=== PATIENT | male | born 1990 ===

== ENCOUNTER 2020-06-25 13:02 | Outpatient (REF) | payer BC, SELFPAY | END 2020-06-25 13:03 | disposition home or self-care (01) | LOC: HO.LAB 13:02 | PROVIDERS: Visit Provider Internal Medicine | DX: Z20.828 Contact with and (suspected) exposure to other viral communicable diseases (principal) | CPT/HCPCS: C9803; U0003 ==

== ENCOUNTER 2020-07-05 15:08 | Outpatient (REF) | payer BC, SELFPAY | END 2020-07-05 15:09 | disposition home or self-care (01) | LOC: HO.LAB 15:08 | PROVIDERS: Visit Provider Internal Medicine | DX: Z20.828 Contact with and (suspected) exposure to other viral communicable diseases (principal) | CPT/HCPCS: C9803; U0003 ==

== ENCOUNTER 2021-01-18 20:33 | Emergency (ER) | payer BC, SELFPAY ==
[2021-01-18 20:41] VITALS: BP 159/99; PULSE 99; RESP 18; TEMP 37.4; O2SAT 95; BMI 27.3
--- NOTE | 2021-01-18 21:00 | ED_ITS ---
HPI - Skin/Abscess/Foreign Bdy General Chief complaint: Skin/Abscess/Foreign Body Stated complaint: Cyst Source: patient Mode of arrival: ambulatory Limitations: no limitations History of Present Illness HPI narrative: 30-year-old male presents with swollen area to the lateral aspect of the right thigh. 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 States this area is quite painful and warm to touch and has had it for the past few days. He did notice some drainage coming from the site. He denies fevers, chills, chest pain pressure, palpitations, shortness of breath, abdominal pain, abdominal distention, dysuria, hematuria, nausea, vomiting, diarrhea, constipation, and edema. MD complaint: abscess/boil Onset (ago): day(s) Tetanus up to date: no Location: RLE Severity: moderate Severity scale (1-10): 6 Quality: burning and aching Pain Consistency: constant Relieving factors: none Exacerbating factors: palpation and movement Context: none Associated symptoms: denies other symptoms Treatments prior to arrival: attempted to drain pus at home Related Data Previous Rx's Medication Instructions Recorded ibuprofen 600 mg PO Q6H PRN #30 tab 01/18/21 sulfamethoxazole-trimethoprim 1 tab PO Q12H 7 Days #14 tab 01/18/21 [Bactrim DS] Allergies Allergy/AdvReac Type Severity Reaction Status Date / Time Penicillins Allergy Swelling Verified 01/18/21 20:40 Review of Systems Review of Systems: Constitutional: No Fever, No Chills ENT/Mouth: No Ear Pain, No Hoarseness, No sore throat Eyes: No Eye Pain, No Swelling, No Redness, No Foreign Body Cardiovascular: No Chest Pain, No SOB Respiratory: No Cough, No Dyspnea Gastrointestinal: No Nausea, No Vomiting, No Diarrhea, No abdominal Pain Genitourinary: No Dysuria, No Hematuria Musculoskeletal: positive Right thigh pain, No Myalgias, No Joint Swelling Skin: positive right thigh erythema, No Skin lacerations, No rash Neuro: No Weakness, No Numbness, No Paresthesias, No Loss of Consciousness, No Dizziness, No Headache Psych: No Anxiety/Panic, No Depression Heme/Lymph: no easy bruising, no Lymphadenopathy Endocrine: No Polyuria, No Polydipsia Yes all other systems are reviewed and are negative PMFSH Past Medical History Attestation statement: The following information was validated with the patient. Source: old records reviewed Medical History Asthma Social History Social History Advance Directives: No Advance Directives Information Provided: Yes Physical Exam Vital Signs: Vital Signs: Last Vital Signs Temp 99.3 F 01/18/21 20:41 Pulse 99 01/18/21 20:41 Resp 18 01/18/21 20:41 BP 159/99 H 01/18/21 20:41 Pulse Ox 95 01/18/21 20:41 Body Mass Index 27.3 Appearance: Alert. Oriented X3. No acute distress. Eyes: Pupils equal, round and reactive to light. ENT: Pharynx normal. Neck: Normal inspection. Neck supple. CVS: Normal heart rate and rhythm. Pulses normal. Respiratory: No respiratory distress. Breath sounds normal. Abdomen: Soft and nontender. Skin: 5 cm in diameter area of cellulitis to the mid lateral thigh, no area of fluctuance there is a pinpoint Pustule in the center of the cellulitis. otherwise all other skin warm and dry. Normal skin color. Normal skin turgor. Extremities: No lower extremity edema. Neuro: No motor deficit. No sensory deficit. Course Course Course Narrative: 30-year-old male presents with cellulitis to the right thigh, no area of fluctuance, patient does not report tick bite, does not have any prior history of hidradenitis suppurative of or any other skin conditions. 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 Will give prescription for Bactrim DS as the patient is a naphylactic to penicillin and respectfully declines doxycycline as he does work out in the sun for prolonged periods of time. Patient verbalized understanding of and agrees to plan of care discharge home. MDM - Skin/Abscess/Foreign Bdy Differential Diagnosis Differential diagnosis: Likely abscess of skin or subcutaneous tissue and cellulitis Medical Records Attestation: I reviewed the patient's medical records. Discharge Plan Discharge Clinical Impression: Cellulitis Qualifiers: Site of cellulitis: extremity Site of cellulitis of extremity: lower extremity Laterality: right Qualified Code(s): L03.115 - Cellulitis of right lower limb Patient Disposition: Home, Self-Care Instructions: Cellulitis (ED) Additional Instructions: you were evaluated for swelling to the right thigh. You do have cellulitis that we are treating with Bactrim DS. This medication is an antibiotic. Please complete the entire course of this medication. You will take this medication twice a day for the next 7 days. Please alternate Tylenol and Motrin. Please write down what time you take Tylenol so you do not accidentally overdose on this medication. we updated your Tdap vaccine today. Thank you for choosing this emergency department for evaluation. Please follow-up with primary care physician as needed. Return to the emergency department for any new, concerning, or worsening symptoms. Prescriptions: New sulfamethoxazole-trimethoprim [Bactrim DS] 800-160 mg tablet 1 tab PO Q12H 7 Days Qty: 14 RF: 0 ibuprofen 600 mg tablet 600 mg PO Q6H PRN (Reason: pain) Qty: 30 RF: 0 Interventions: ED Discharge Assessment Last Done: 01/18/21 21:43 Discharge Date/Time: 01/18/21 21:42
[2021-01-18] MEDS: Diphth,Pertus(ACell),Tet Adult 0.5 ML SYRINGE IM (21:35)
[2021-01-18] MEDS: Acetaminophen 325 MG TABLET 650 MG PO (21:36)
== END 2021-01-18 21:42 | disposition home or self-care (01) ==
PROVIDERS: Emergency Provider Student in an Organized Health Care Education/Training Program
DX: L03.115 Cellulitis of right lower limb (principal)
CPT/HCPCS: 90471; 90715; 99284

== ENCOUNTER 2021-01-20 21:12 | Inpatient (IN) | payer BC, SELFPAY ==
--- NOTE | ~2021-01-20 | US_ITS ---
EXAMINATION: US EXTREMITY, NON-VASCULAR, RIGHT CLINICAL INFORMATION: just prior to ultrasound. COMPARISON: None. TECHNIQUE: Targeted ultrasound of the right thigh in the area of concern. FINDINGS: There is a small slightly complex irregularly-shaped fluid collection in the superficial subcutaneous soft tissues. This measures 1.5 cm transverse 0.8 cm AP and 1.6 cm craniocaudal. I cannot determine whether not the fluid communicates with the superficial skin defect. US/US extremity nonvascular IMPRESSION: Small slightly complex fluid collection in the right thigh in the area of concern. This is nonspecific but could reflect an abscess or hematoma. I am not certain whether not it communicates with the skin. This aspect is likely clinically evident.
[2021-01-20 21:19] VITALS: BP 131/81; PULSE 98; RESP 18; TEMP 37.3; O2SAT 97; BMI 27.1
--- NOTE | 2021-01-20 21:27 | ED_ITS ---
HPI - General Adult General Chief complaint: General Medical Stated complaint: Cyst Time Seen by Provider: 01/20/21 22:55 Source: patient Mode of arrival: ambulatory Limitations: no limitations History of Present Illness HPI narrative: 30-year-old male presents with worsening cellulitis and abscess to the right thigh. He was seen on 01/18/2021 and given Bactrim. He has been taking this medication as directed. The swelling and pain has increased, and he experience night sweats and subjective fevers last night. Does not report any loss of sensation, chest pain or pressure, palpitations, shortness of breath, abdominal pain, abdominal distention, dysuria, hematuria, nausea, vomiting, diarrhea, or weakness. Onset (ago): day(s) ( Five) Location: right and lower extremity Severity: moderate Severity scale (1-10): 6 Quality: burning and aching Pain Consistency: constant Relieving factors: none Exacerbating factors: movement Associated symptoms: fever/chills Treatments prior to arrival: NSAID and other ( antibiotics) Related Data Previous Rx's Medication Instructions Recorded ibuprofen 600 mg PO Q6H PRN #30 tab 01/18/21 sulfamethoxazole-trimethoprim 1 tab PO Q12H 7 Days #14 tab 01/18/21 [Bactrim DS] Allergies Allergy/AdvReac Type Severity Reaction Status Date / Time Penicillins Allergy Swelling Verified 01/18/21 20:40 Review of Systems Review of Systems: Constitutional: No Fever, No Chills ENT/Mouth: No Ear Pain, No Hoarseness, No sore throat Eyes: No Eye Pain, No Swelling, No Redness, No Foreign Body Cardiovascular: No Chest Pain, No SOB Respiratory: No Cough, No Dyspnea Gastrointestinal: No Nausea, No Vomiting, No Diarrhea, No abdominal Pain Genitourinary: No Dysuria, No Hematuria Musculoskeletal: positive right thigh pain, No Myalgias, No Joint Swelling Skin: positive abscess to right thigh, No Skin lacerations, No rash Neuro: No Weakness, No Numbness, No Paresthesias, No Loss of Consciousness, No Dizziness, No Headache Psych: No Anxiety/Panic, No Depression Heme/Lymph: no easy bruising, no Lymphadenopathy Endocrine: No Polyuria, No Polydipsia Yes all other systems are reviewed and are negative PMFSH Past Medical History Attestation statement: The following information was validated with the patient. Source: old records reviewed Medical History Asthma Social History Social History Advance Directives: No Advance Directives Information Provided: Yes Physical Exam Vital Signs: Vital Signs: Last Vital Signs Temp 99.1 F 01/20/21 21:19 Pulse 94 01/20/21 23:38 Resp 17 01/20/21 23:38 BP 142/93 H 01/20/21 23:38 Pulse Ox 96 01/20/21 23:38 Body Mass Index 27.1 Appearance: Alert. Oriented X3. moderate distress. Eyes: Pupils equal, round and reactive to light. ENT: Pharynx normal. Neck: Normal inspection. Neck supple. CVS: Normal heart rate and rhythm. Pulses normal. Respiratory: No respiratory distress. Breath sounds normal. Abdomen: Soft and nontender. Skin: please refer to picture of right thigh . Otherwise Skin warm and dry. Normal skin color. Normal skin turgor. Extremities: No lower extremity edema. Neuro: No motor deficit. No sensory deficit. Course Course Course Narrative: 30-year-old male presents with worsening cellulitis to the right thigh. p.o. antibiotics ineffective, will order labs per sepsis pr otocol. Will resuscitate with 2 L of fluid per ideal body weight, I will start clindamycin and vancomycin as patient is anaphylactic allergic to penicillins. Bedside ultrasound completed, area of abscess noted, I&D indicated. Prepped and draped in sterile fashion, Betadine cleanse, 0.5 cm incision made with 11 blade, approximately 30 mL of fluid expressed from the site, packed with iodoform dressing, covered with sterile dressing. Patient tolerated procedure well. Approximately 4 mL of lidocaine used for anesthetic. culture sent. 9:37 p.m. I did discuss this case with Dr. Ayers, patient will be admitted for cellulitis. 10:52 p.m. lactic acid 1.3, patient's white count is 19.7, chemistries are still pending. Procedures Abscess I/D Site: lower extremity Side (if applicable): right Local Anesthetic: lidocaine 2% Amount of anesthesia used (mL): 4 Technique: incised with blade Amount of fluid expressed (mL): 30 Sent for culture/gram staining?: Yes Packing used?: iodoform Medical Decision Making Differential Diagnosis Differential Diagnosis: Cellulitis, abscess, sepsis Medical Records Medical records reviewed: Yes I reviewed the patient's medical records. Lab Data Lab results reviewed: Yes I reviewed the patient's lab results. Result diagrams: 01/20/21 22:09 01/20/21 22:44 Labs: Lab Results 01/20/21 01/20/21 01/20/21 Range/Units 22:09 22:09 22:09 WBC 19.7 H (4.8-10.8) X10*3/uL RBC 5.00 (4.60-5.80) X10*6/uL Hgb 14.7 (14.0-18.0) g/dl Hct 41.9 L (42-52) % MCV 83.8 (80-98) fL MCH 29.4 (27.0-33.0) pg MCHC 35.1 (31.0-36.0) g/dl RDW 13.2 (11.0-16.0) % Plt Count 243 (160-400) X10*3/uL MPV 10.2 (9.4-12.4) fL Immature Gran % (Auto) 0.5 H (0.0-0.4) % Neut % (Auto) 79.3 H (45-73) % Lymph % (Auto) 9.1 L (20-40) % [place] % (Auto) 10.5 (2-11) % Eos % (Auto) 0.4 (0-4) % Baso % (Auto) 0.2 (0-2) % Lymph # (Auto) 1.8 (1.2-4.9) X10*3/uL [place] # (Auto) 2.1 H (0.1-1.2) X10*3/uL Eos # (Auto) 0.1 (0.0-0.4) X10*3/uL Baso # (Auto) 0.0 (0.0-0.2) X10*3/uL Abs Immat Gran (auto) 0.09 H (0.00-0.03) X10*3/uL Absolute Neuts (auto) 15.6 H (2.0-8.3) X10*3/uL Absolute Nucleated RBC 0.000 (0.0-0.012) X10*3/uL Nucleated RBC % (auto) 0.0 (0.0-0.2) /100WBC Smear Tech's Comments VERIFIED PT 15.0 H (9.9-13.0) SEC INR 1.3 H (0.9-1.1) APTT 28.9 (24.1-38.0) SEC Lactic Acid 1.3 (0.5-2.0) mmol/L COVID-19 ([facility]) (Negative) COVID-19 Clin Com 01/20/21 Range/Units 22:28 WBC (4.8-10.8) X10*3/uL RBC (4.60-5.80) X10*6/uL Hgb (14.0-18.0) g/dl Hct (42-52) % MCV (80-98) fL MCH (27.0-33.0) pg MCHC (31.0-36.0) g/dl RDW (11.0-16.0) % Plt Count (160-400) X10*3/uL MPV (9.4-12.4) fL Immature Gran % (Auto) (0.0-0.4) % Neut % (Auto) (45-73) % Lymph % (Auto) (20-40) % [place] % (Auto) (2-11) % Eos % (Auto) (0-4) % Baso % (Auto) (0-2) % Lymph # (Auto) (1.2-4.9) X10*3/uL [place] # (Auto) (0.1-1.2) X10*3/uL Eos # (Auto) (0.0-0.4) X10*3/uL Baso # (Auto) (0.0-0.2) X10*3/uL Abs Immat Gran (auto) (0.00-0.03) X10*3/uL Absolute Neuts (auto) (2.0-8.3) X10*3/uL Absolute Nucleated RBC (0.0-0.012) X10*3/uL Nucleated RBC % (auto) (0.0-0.2) /100WBC Smear Tech's Comments PT (9.9-13.0) SEC INR (0.9-1.1) APTT (24.1-38.0) SEC Lactic Acid (0.5-2.0) mmol/L COVID-19 ([facility]) Negative (Negative) COVID-19 Clin Com See Note Critical Care Time Critical Care Time Critical Care Time: Yes Total Critical Care Time: 45 Attestation: I have personally provided critical care time exclusive of time spent on separately billable procedures. Time includes review of laboratory data, radiology results, discussion with consultants, and monitoring for potential decompensation. Interventions were performed as documented. Discharge Plan Discharge Clinical Impression: Cellulitis Qualifiers: Site of cellulitis: extremity Site of cellulitis of extremity: lower extremity Laterality: right Qualified Code(s): L03.115 - Cellulitis of right lower limb Patient Disposition: Admitted As Inpatient
--- NOTE | 2021-01-20 22:10 | PM.IMHP ---
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 presented to the ER on 01/18/2021-noted to have thigh cellulitis given doxycycline and discharged home; patient reported that since he went home, he continued to have pain redness and swelling and later noted to have serosanguineous discharge. Denies any numbness tingling on the lower extremities; denies any fever chills cough. Denies any GI or symptoms. Review of all other systems is negative except mentioned above ER course: Per ER team patient noted to have mild open area with serosanguineous chest; status post I&D in the ER; noted right high warm tenderness and hyperemia consistent with cellulitis; given IV clindamycin and IV vancomycin. Admitted for further management. [facility] Medical History Asthma Social History Household Members: Family Housing: House Do you presently have visiting nurse or other home services: No Patient Tobacco Use Status: Never used Tobacco service: No Current occupational status: employed Meds Allergies Allergy/AdvReac Type Severity Reaction Status Date / Time Penicillins Allergy Swelling Verified 01/18/21 20:40 Active Medications: Current Medications Generic Name Dose Route Start Last Admin Trade Name Freq PRN Reason Stop Dose Admin Acetaminophen 650 mg 01/20/21 21:59 Acetaminophen 325 Mg Tablet PO Q6H PRN Pain, Mild (Pain Scale 1-3) Heparin Sodium (Porcine) 5,000 unit 01/20/21 22:00 Heparin Sodium,Porcine 5,000 Unit/Ml Vial SUBCUT Q8H JEISON Sodium Chloride 1,000 mls @ 999 mls/hr 01/20/21 21:30 Ns IVCONT 01/20/21 22:30 .Q1H1M JEISON Vancomycin HCl 1,000 mg/ 270 mls @ 270 mls/hr 01/20/21 21:28 Sodium Chloride IV 01/20/21 22:27 ONCE ONE Vancomycin HCl 1,000 mg/ 270 mls @ 270 mls/hr 01/20/21 22:00 Sodium Chloride IV Q12H JEISON Ketorolac Tromethamine 15 mg 01/20/21 22:02 Ketorolac Tromethamine 30 Mg/Ml Vial IVPUSH 01/25/21 22:01 Q6H PRN Pain, Severe (Pain Scale 7-10) Melatonin 6 mg 01/20/21 21:59 Melatonin 3 Mg Tablet PO BEDTIME PRN Insomnia Pharmacy Consult 1 each 01/20/21 21:59 Consult Rx Vancomycin Dosing MISCELLANE DAILY PRN Consult order Senna 17.2 mg 01/20/21 21:59 Sennosides 8.6 Mg Tablet PO BEDTIME PRN Constipation Sodium Chloride 3 ml 01/21/21 00:00 0.9 % Sodium Chloride Flush 3 Ml Syringe IVFLUSH QSHIFT [facility] Home Medications Medication Instructions Recorded Confirmed Last Taken Type ibuprofen 600 mg PO Q6H PRN 01/21/21 01/21/21 01/20/21 History Physical Exam Vital Signs and Narrative: Vital Signs: Last Vital Signs Temp 99.1 F 01/20/21 21:19 Pulse 98 01/20/21 21:19 Resp 18 01/20/21 21:19 BP 131/81 01/20/21 21:19 Pulse Ox 97 01/20/21 21:19 Body Mass Index 27.1 Gen: Appears be in no acute distress HEENT: NCAT, Moist mucosa. Pulmonary: Vesicular breath sounds, fair air entry CVS: Normal S1-S2 Abdomen: BS+, Soft, Nontender Extremities: Warm well perfused ; right thigh lateralmiddle 3rd noted to have warm, hyperemia, tenderness; Neuro: Alert and awake. Results Labs CBC and Chem 7: 01/22/21 08:53 01/22/21 08:53 Assessment and Plan (1) Cellulitis: Status: Acute 30-year-old male with no significant past medical history presented to the hospital with a chief complaint of right thigh pain redness and swelling - note of cellulitis/abscess; status post I&D in the ER. Admitted for further management. Right lateral thigh cellulitis /abscess: ?Bug bite Continue IV vancomycin. Follow up cultures. Id consult. nonvascular ultrasound to rule out any abscess pockets. Compartments are soft. pain control diet: Regular diet Code status: Full code Quality Stroke Does the patient have a stroke diagnosis?: No VTE Prior VTE?: No VTE Risk Level:: Medical - moderate - high VTE Device Contraindication: Treatment Not Indicated VTE Drug Contraindication: N/A - Med Ordered
[2021-01-20 22:22] LABS: INTERNATIONAL NORM RATIO 1.3 (0.9-1.1)
[2021-01-20 22:24] LABS: Partial Thromboplastin Time 28.9 SEC (24.1-38.0)
[2021-01-20 22:25] LABS: Basophils Percent Auto 0.2 % (0-2); Eosinophils Absolute Auto 0.1 X10*3/uL (0.0-0.4); Eosinophils Percent Auto 0.4 % (0-4); Hematocrit 41.9 % (42-52); Hemoglobin 14.7 g/dl (14.0-18.0); Imm Gran Abs Auto 0.09 X10*3/uL (0.00-0.03); Imm Gran Pct Auto 0.5 % (0.0-0.4); Lymphocytes Absolute Auto 1.8 X10*3/uL (1.2-4.9); Lymphocytes Percent Auto 9.1 % (20-40); MANUAL DIFF FLAG SCAN; Mean Corpuscular HGB Conc 35.1 g/dl (31.0-36.0); Mean Corpuscular Hemoglobin 29.4 pg (27.0-33.0); Mean Corpuscular Volume 83.8 fL (80-98); Mean Platelet Volume 10.2 fL (9.4-12.4); Monocytes Absolute Auto 2.1 X10*3/uL (0.1-1.2); Monocytes Percent Auto 10.5 % (2-11); Neutrophils Absolute Auto 15.6 X10*3/uL (2.0-8.3); Neutrophils Percent Auto 79.3 % (45-73); Platelet Count 243 X10*3/uL (160-400); Red Cell Distribution Width 13.2 % (11.0-16.0); SCAN SMEAR FLAG 1; White Blood Count 19.7 X10*3/uL (4.8-10.8)
[2021-01-20] MEDS: 0.9 % Sodium Chloride 1,000 ML 999 ML IVCONT ×2 (22:30→22:52)
[2021-01-20] MEDS: Clindamycin Phosphate/D5W 600 MG/50 ML PIGGYBACK 100 MG IV (22:32)
[2021-01-20] MEDS: Heparin Sodium,Porcine 5,000 UNIT/ML VIAL 5000 UNIT SUBCUT (22:33)
[2021-01-20] MEDS: Ketorolac Tromethamine 30 MG/ML VIAL IVPUSH (22:33)
[2021-01-20] MEDS: vancomycin HCL 1,000 MG in 0.9 % Sodium Chloride 250 ML 270 MG IV (22:34)
[2021-01-20 22:41] LABS: Lactic Acid 1.3 mmol/L (0.5-2.0)
--- NOTE | 2021-01-20 22:41 | PC.NURSE ---
first dose of vancomycin already given in the ed.
[2021-01-20 22:44] LABS: SLIDE REVIEW VERIFIED
[2021-01-20 22:51] LABS: COVID-19 Test Negative (Negative); IDNOW Serial# 9DD0AD1C
[2021-01-20] MEDS: Lidocaine HCl 2 % MPF 5 ML VIAL SUBCUT (22:54)
[2021-01-20 23:27] LABS: Anion Gap 16 (12-20); Blood Urea Nitrogen 13 mg/dL (9-16); Calcium 8.5 mg/dL (8.4-10.2); Carbon Dioxide 23 mmol/L (22-29); Chloride 103 mmol/L (96-108); Creatinine Clr Calc Pharmacy 79.8; Estimated Glomerular Filt Rate 58; Glucose Random 83 mg/dL (60-115); Potassium 3.8 mmol/L (3.3-5.1); Sodium 138 mmol/L (135-145)
[2021-01-20 23:38] VITALS: BP 142/93; PULSE 94; RESP 17; O2SAT 96
--- NOTE | 2021-01-20 23:54 | PC.NURSE ---
98.6 oral, hr 97 sat 99% room air, rr 16, 129/85
[2021-01-20 23:55] VITALS: BP 129/85; PULSE 97; RESP 16
[2021-01-21] VITALS (7 sets, daily range): BP systolic 129–141; BP diastolic 60–81; PULSE 74–99; RESP 17–20; TEMP 36.3–37.1; O2SAT 96–99
[2021-01-21] MEDS: Heparin Sodium,Porcine 5,000 UNIT/ML VIAL 5000 UNIT SUBCUT ×3 (06:07→23:05)
[2021-01-21 06:41] LABS: MANUAL DIFF FLAG NO
[2021-01-21 06:47] LABS: Basophils Percent Auto 0.1 % (0-2); Eosinophils Absolute Auto 0.1 X10*3/uL (0.0-0.4); Eosinophils Percent Auto 0.5 % (0-4); Hematocrit 41.5 % (42-52); Imm Gran Abs Auto 0.06 X10*3/uL (0.00-0.03); Imm Gran Pct Auto 0.4 % (0.0-0.4); Lymphocytes Percent Auto 13.5 % (20-40); Mean Corpuscular HGB Conc 33.7 g/dl (31.0-36.0); Mean Corpuscular Volume 86.1 fL (80-98); Mean Platelet Volume 10.7 fL (9.4-12.4); Monocytes Absolute Auto 1.4 X10*3/uL (0.1-1.2); Monocytes Percent Auto 9.8 % (2-11); Neutrophils Percent Auto 75.7 % (45-73); Platelet Count 230 X10*3/uL (160-400); Red Blood Count 4.82 X10*6/uL (4.60-5.80); Red Cell Distribution Width 13.3 % (11.0-16.0); White Blood Count 14.6 X10*3/uL (4.8-10.8)
[2021-01-21 07:08] LABS: Anion Gap 13 (12-20); Blood Urea Nitrogen 10 mg/dL (9-16); Calcium 8.3 mg/dL (8.4-10.2); Carbon Dioxide 22 mmol/L (22-29); Chloride 108 mmol/L (96-108); Creatinine Clr Calc Pharmacy 105.5; Estimated Glomerular Filt Rate > 60; Glucose Random 93 mg/dL (60-115); Potassium 4.2 mmol/L (3.3-5.1); Sodium 139 mmol/L (135-145)
[2021-01-21] MEDS: 0.9 % Sodium Chloride Flush 3 ML SYRINGE IVFLUSH ×2 (08:15→14:11)
--- NOTE | 2021-01-21 08:16 | PHA.MEDREC ---
TREVER ELLISON, pt not on any medications, was given ibiprofen and antibiotic upon ER visit few days ago.Pharmacy Consult ? Medication Reconciliation Pharmacy has completed the medication reconciliation.
--- NOTE | 2021-01-21 08:33 | MHC.CM.PN ---
pt lives in [facility] his mother. he reports that he is independent in his care. he drives a car and works a job. pt says that if he needs help then his mother could help him. he says his mother or a friend will transport him home at dc. pt denies the need for vna at dc. dc plan is home no svcs. cm to cont. to follow.
--- NOTE | 2021-01-21 09:47 | HO.PM.IMPN ---
Subjective Subjective Date of Service: 01/21/21 Interval History: Seen in f/u for cellulitis and abscess right the [facility] Review of Systems Gen: no fever Resp: no sob, no cough CV: no chest, no HOOKS, no leg edema GI: No n/v, no abd pain Neuro: No confusion pain in right the [facility] Physical Exam Vital Signs: Vital Signs: Last Vital Signs Temp 97.4 F 01/21/21 07:15 Pulse 74 01/21/21 07:15 Resp 18 01/21/21 07:15 BP 129/77 01/21/21 07:15 Pulse Ox 99 01/21/21 07:15 Body Mass Index 27.1 Const: Other: General: AO X 3, no acute distress Resp: CTA bilateral CVS: S1,S2,RRR GI: +BS, NT, no distention Skin: Neuro: motor grossly intact Psych: appropriate affect Objective Data Current Medications Generic Name Dose Route Start Last Admin Trade Name Freq PRN Reason Stop Dose Admin Acetaminophen 650 mg 01/20/21 21:59 Acetaminophen 325 Mg Tablet PO Q6H PRN Pain, Mild (Pain Scale 1-3) Heparin Sodium (Porcine) 5,000 unit 01/20/21 22:00 01/21/21 06:07 Heparin Sodium,Porcine 5,000 Unit/Ml Vial SUBCUT 5,000 unit Q8H [facility] Administration Vancomycin HCl 1,000 mg/ 270 mls @ 270 mls/hr 01/21/21 10:00 Sodium Chloride IV Q12H JEISON Ketorolac Tromethamine 15 mg 01/20/21 22:02 Ketorolac Tromethamine 30 Mg/Ml Vial IVPUSH 01/25/21 22:01 Q6H PRN Pain, Severe (Pain Scale 7-10) Melatonin 6 mg 01/20/21 21:59 Melatonin 3 Mg Tablet PO BEDTIME PRN Insomnia Pharmacy Consult 1 each 01/20/21 21:59 Consult Rx Vancomycin Dosing MISCELLANE DAILY PRN Consult order Senna 17.2 mg 01/20/21 21:59 Sennosides 8.6 Mg Tablet PO BEDTIME PRN Constipation Sodium Chloride 3 ml 01/21/21 00:00 01/21/21 08:15 0.9 % Sodium Chloride Flush 3 Ml Syringe IVFLUSH 3 ml QSHIFT [facility] Administration Labs CBC & Chem 7: 01/21/21 05:49 01/21/21 05:49 Labs: Laboratory Results - last 24 hr 01/20/21 01/20/21 01/20/21 22:09 22:09 22:09 WBC 19.7 H RBC 5.00 Hgb 14.7 Hct 41.9 L MCV 83.8 MCH 29.4 MCHC 35.1 RDW 13.2 Plt Count 243 MPV 10.2 Immature Gran % (Auto) 0.5 H Neut % (Auto) 79.3 H Lymph % (Auto) 9.1 L [place] % (Auto) 10.5 Eos % (Auto) 0.4 Baso % (Auto) 0.2 Lymph # (Auto) 1.8 [place] # (Auto) 2.1 H Eos # (Auto) 0.1 Baso # (Auto) 0.0 Abs Immat Gran (auto) 0.09 H Absolute Neuts (auto) 15.6 H Absolute Nucleated RBC 0.000 Nucleated RBC % (auto) 0.0 Smear Tech's Comments VERIFIED PT 15.0 H INR 1.3 H APTT 28.9 Sodium Potassium Chloride Carbon Dioxide Anion Gap BUN Creatinine Estim Creat Clear Calc Estimated GFR Random Glucose Lactic Acid 1.3 Calcium COVID-19 ([facility]ILETH) COVID-19 Clin Com 01/20/21 01/20/21 01/21/21 22:28 22:44 05:49 WBC 14.6 H RBC 4.82 Hgb 14.0 Hct 41.5 L MCV 86.1 MCH 29.0 MCHC 33.7 RDW 13.3 Plt Count 230 MPV 10.7 Immature Gran % (Auto) 0.4 Neut % (Auto) 75.7 H Lymph % (Auto) 13.5 L [place] % (Auto) 9.8 Eos % (Auto) 0.5 Baso % (Auto) 0.1 Lymph # (Auto) 2.0 [place] # (Auto) 1.4 H Eos # (Auto) 0.1 Baso # (Auto) 0.0 Abs Immat Gran (auto) 0.06 H Absolute Neuts (auto) 11.0 H Absolute Nucleated RBC 0.000 Nucleated RBC % (auto) 0.0 Smear Tech's Comments PT INR APTT Sodium 138 Potassium 3.8 Chloride 103 Carbon Dioxide 23 Anion Gap 16 BUN 13 Creatinine 1.44 H Estim Creat Clear Calc 79.8 Estimated GFR 58 Random Glucose 83 Lactic Acid Calcium 8.5 COVID-19 ([facility]ILETH) Negative COVID-19 Clin Com See Note 01/21/21 05:49 WBC RBC Hgb Hct MCV MCH MCHC RDW Plt Count MPV Immature Gran % (Auto) Neut % (Auto) Lymph % (Auto) [place] % (Auto) Eos % (Auto) Baso % (Auto) Lymph # (Auto) [place] # (Auto) Eos # (Auto) Baso # (Auto) Abs Immat Gran (auto) Absolute Neuts (auto) Absolute Nucleated RBC Nucleated RBC % (auto) Smear Tech's Comments PT INR APTT Sodium 139 Potassium 4.2 Chloride 108 Carbon Dioxide 22 Anion Gap 13 BUN 10 Creatinine 1.09 Estim Creat Clear Calc 105.5 Estimated GFR > 60 Random Glucose 93 Lactic Acid Calcium 8.3 L COVID-19 ([facility]ILETH) COVID-19 Clin Com Microbiology Microbiology Results: Microbiology 01/20/21 22:12 Routine Culture - Preliminary Thigh Right Culture in progress. Quality Stroke Does the patient have a stroke diagnosis?: No VTE Prior VTE?: No VTE Risk Level:: Medical - moderate - high VTE Device Contraindication: Treatment Not Indicated VTE Drug Contraindication: N/A - Med Ordered Assessment and Plan (1) Cellulitis: Status: Acute Assessment and Plan: 30-year-old male with no significant past medical history presented to the hospital with a chief complaint of right thigh pain redness and swelling - note of cellulitis/abscess; status post I&D in the ER. Admitted for further management. Right lateral thigh cellulitis /abscess: ?Bug bite Continue IV vancomycin. Follow up cultures, and gram stain. Id consult. nonvascular ultrasound to rule out any abscess pockets. Compartments are soft. pain control surgery consult to seee if he needs wider incision diet: Regular diet Code status: Full code
[2021-01-21] MEDS: Ketorolac Tromethamine 30 MG/ML VIAL 15 MG IVPUSH ×2 (10:09→20:23)
[2021-01-21] MEDS: vancomycin HCL 1,000 MG in 0.9 % Sodium Chloride 250 ML 270 MG IV ×2 (10:09→23:05)
--- NOTE | 2021-01-21 12:32 | PM.CNGS ---
History of Present Illness Consult details Consult date: 01/21/21 Requesting physician: Ricardo Lainez Narrative: 30-year-old male patient presenting with an abscess of the right thigh. 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 He was initially treated with oral antibiotics but when the redness and pain increased he subsequently returned to the emergency department. He was found to have an abscess in the right lateral thigh and subsequently underwent incision and drainage. A large abscess collection was drained and the wounds were packed. Surgical consultation was requested for possible extension of the incision and drainage. Of note the patient underwent an ultrasound of the site today which reveals no undrained abscess collection. Since the patient's admission he notes the redness have improved but he continues to have pain. Review of Systems Review of Systems: Yes all other systems are reviewed and are negative Constitutional: Constitutional: Reports body ache(s), Reports chills, Reports fatigue and Reports fever(s) Cardiovascular: Cardiovascular: Denies chest pain, Denies rapid heart rate, Reports leg edema and Denies palpitations Respiratory: Respiratory: Denies chest congestion, Denies cough and Denies excessive phlegm production Musculoskeletal: Musculoskeletal: Reports as per HPI Endocrine: Endocrine: Reports fatigue and Denies palpitations Hematologic/Lymphatic: Hematologic/Lymphatic: Denies lymphadenopathy [facility] Past Medical History Medical History Asthma Social History Social History Household Members: Family Housing: House Do you presently have visiting nurse or other home services: No Patient Tobacco Use Status: Never used Tobacco Use of substances other than those prescribed or required for medical reasons: No Currently Displaying Signs/Symptoms of Drug Intoxication Withdrawal: No Have you been hit, kicked, punched, or otherwise hurt by someone within the past year? If so, by whom?: No Do you feel safe in your current relationship?: Yes Is there a partner from a previous relationship who is making you feel unsafe now?: No Are you made to feel afraid or neglected: No Advance Directives: No Advance Directives Information Provided: Yes Do you have thoughts of harming others: None Do you have a plan to hurt others: No Plan Recently lost weight without trying: No Nutrition Risks: No Nutritional Risk Poor oral hygiene: No service: No Current occupational status: employed Meds Allergies Allergy/AdvReac Type Severity Reaction Status Date / Time Penicillins Allergy Swelling Verified 01/18/21 20:40 Active Medications: Current Medications Generic Name Dose Route Start Last Admin Trade Name Frelamin PRN Reason Stop Dose Admin Acetaminophen 650 mg 01/20/21 21:59 Acetaminophen 325 Mg Tablet PO Q6H PRN Pain, Mild (Pain Scale 1-3) Heparin Sodium (Porcine) 5,000 unit 01/20/21 22:00 01/21/21 06:07 Heparin Sodium,Porcine 5,000 Unit/Ml Vial SUBCUT 5,000 unit Q8H JEISON Administration Vancomycin HCl 1,000 mg/ 270 mls @ 270 mls/hr 01/21/21 10:00 01/21/21 11:11 Sodium Chloride IV Infused Q12H JEISON Infusion Ketorolac Tromethamine 15 mg 01/20/21 22:02 01/21/21 10:09 Ketorolac Tromethamine 30 Mg/Ml Vial IVPUSH 01/25/21 22:01 15 mg Q6H PRN Administration Pain, Severe (Pain Scale 7-10) Melatonin 6 mg 01/20/21 21:59 Melatonin 3 Mg Tablet PO BEDTIME PRN Insomnia Morphine Sulfate 2 mg 01/21/21 09:45 Morphine Sulfate 4 Mg/Ml Cartridge IVPUSH Q4H PRN Pain, Severe (Pain Scale 7-10) Pharmacy Consult 1 each 01/20/21 21:59 Consult Rx Vancomycin Dosing MISCELLANE DAILY PRN Consult order Senna 17.2 mg 01/20/21 21:59 Sennosides 8.6 Mg Tablet PO BEDTIME PRN Constipation Sodium Chloride 3 ml 01/21/21 00:00 01/21/21 08:15 0.9 % Sodium Chloride Flush 3 Ml Syringe IVFLUSH 3 ml QSHIFT JEISON Administration Home Medications Medication Instructions Recorded Confirmed Last Taken Type ibuprofen 600 mg PO Q6H PRN 01/21/21 01/21/21 01/20/21 History Physical Exam Vital Signs: Vital Signs: Last Vital Signs Temp 98.2 F 01/21/21 11:38 Pulse 83 01/21/21 11:38 Resp 17 01/21/21 11:38 BP 131/68 01/21/21 11:38 Pulse Ox 97 01/21/21 11:38 Body Mass Index 27.1 Const: General: cooperative, no acute distress, well developed and alert Nutritional Appearance: well nourished Orientation/consciousness: patient oriented x3 Limitations: no limitations HENMT: Head: Yes normocephalic and Yes atraumatic Ears: hearing grossly normal bilaterally Resp: Effort & Inspection: normal respiratory effort, no stridor and not tachypneic Cardio: Jugular venous distension: no JVD GI: Inspection: Yes normal to inspection Skin: General skin exam: no rashes or lesions noted Neuro: General: patient oriented x3 Extrem: Other: Incision and drainage site in the lateral left thigh. No erythema appreciated. Wounds were repacked with quarter-inch Nu Gauze. Fluffed gauze followed by Kerlix and Arron bandage applied. Patient tolerated the dressing change well. Results Labs Result diagrams: 01/21/21 05:49 01/21/21 05:49 Labs: Abnormal lab results 01/20/21 01/20/21 01/20/21 Range/Units 22:09 22:09 22:44 WBC 19.7 H (4.8-10.8) X10*3/uL Hct 41.9 L (42-52) % Immature Gran % (Auto) 0.5 H (0.0-0.4) % Neut % (Auto) 79.3 H (45-73) % Lymph % (Auto) 9.1 L (20-40) % Day # (Auto) 2.1 H (0.1-1.2) X10*3/uL Abs Immat Gran (auto) 0.09 H (0.00-0.03) X10*3/uL Absolute Neuts (auto) 15.6 H (2.0-8.3) X10*3/uL PT 15.0 H (9.9-13.0) SEC INR 1.3 H (0.9-1.1) Creatinine 1.44 H (0.5-1.4) mg/dL Calcium (8.4-10.2) mg/dL 01/21/21 01/21/21 Range/Units 05:49 05:49 WBC 14.6 H (4.8-10.8) X10*3/uL Hct 41.5 L (42-52) % Immature Gran % (Auto) (0.0-0.4) % Neut % (Auto) 75.7 H (45-73) % Lymph % (Auto) 13.5 L (20-40) % Day # (Auto) 1.4 H (0.1-1.2) X10*3/uL Abs Immat Gran (auto) 0.06 H (0.00-0.03) X10*3/uL Absolute Neuts (auto) 11.0 H (2.0-8.3) X10*3/uL PT (9.9-13.0) SEC INR (0.9-1.1) Creatinine (0.5-1.4) mg/dL Calcium 8.3 L (8.4-10.2) mg/dL Short CBC 01/20/21 01/21/21 Range/Units 22:09 05:49 WBC 19.7 H 14.6 H (4.8-10.8) X10*3/uL Hgb 14.7 14.0 (14.0-18.0) g/dl Hct 41.9 L 41.5 L (42-52) % Plt Count 243 230 (160-400) X10*3/uL BMP 01/20/21 01/21/21 22:44 05:49 Sodium 138 139 Potassium 3.8 4.2 Chloride 103 108 Carbon Dioxide 23 22 BUN 13 10 Creatinine 1.44 H 1.09 Calcium 8.5 8.3 L All other labs normal. 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 Patient is status post incision and drainage performed in the emergency department yesterday. Since his admission is WBC has improved and the cellulitis has improved as well. Wounds were repacked today. Ultrasound of the soft tissue performed during the dressing change revealed an abscess cavity contiguous with the I and D site. No undrained abscess could be identified. Edema is noted within the tissue. Wounds were repacked as noted above. No further incision and drainage is required at this time. Dressing should be changed on a daily basis and p.r.n. Procedures Date of Service Date of Service: 01/21/21
--- NOTE | 2021-01-21 13:49 | W.PM.IDCN ---
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 He had come to ER on 01/18 with redness right lateral thigh He was prescribed Bactrim but area didnt improve and then came back to ER He has no fever or chills at this point Review of Systems Review of Systems: Yes all other systems are reviewed and are negative [facility] Past Medical History Medical History Asthma Functional capacity: independent ambulation Family History Family history: reviewed and not pertinent Social History Social History Household Members: Family Housing: House Do you presently have visiting nurse or other home services: No Patient Tobacco Use Status: Never used Tobacco Use of substances other than those prescribed or required for medical reasons: No Currently Displaying Signs/Symptoms of Drug Intoxication Withdrawal: No Have you been hit, kicked, punched, or otherwise hurt by someone within the past year? If so, by whom?: No Do you feel safe in your current relationship?: Yes Is there a partner from a previous relationship who is making you feel unsafe now?: No Are you made to feel afraid or neglected: No Advance Directives: No Advance Directives Information Provided: Yes Do you have thoughts of harming others: None Do you have a plan to hurt others: No Plan Recently lost weight without trying: No Nutrition Risks: No Nutritional Risk Poor oral hygiene: No service: No Current occupational status: employed Meds Allergies Allergy/AdvReac Type Severity Reaction Status Date / Time Penicillins Allergy Swelling Verified 01/18/21 20:40 Active Medications: Current Medications Generic Name Dose Route Start Last Admin Trade Name Freq PRN Reason Stop Dose Admin Acetaminophen 650 mg 01/20/21 21:59 Acetaminophen 325 Mg Tablet PO Q6H PRN Pain, Mild (Pain Scale 1-3) Heparin Sodium (Porcine) 5,000 unit 01/20/21 22:00 01/21/21 06:07 Heparin Sodium,Porcine 5,000 Unit/Ml Vial SUBCUT 5,000 unit Q8H JEISON Administration Vancomycin HCl 1,000 mg/ 270 mls @ 270 mls/hr 01/21/21 10:00 01/21/21 11:11 Sodium Chloride IV Infused Q12H JEISON Infusion Ketorolac Tromethamine 15 mg 01/20/21 22:02 01/21/21 10:09 Ketorolac Tromethamine 30 Mg/Ml Vial IVPUSH 01/25/21 22:01 15 mg Q6H PRN Administration Pain, Severe (Pain Scale 7-10) Melatonin 6 mg 01/20/21 21:59 Melatonin 3 Mg Tablet PO BEDTIME PRN Insomnia Morphine Sulfate 2 mg 01/21/21 09:45 Morphine Sulfate 4 Mg/Ml Cartridge IVPUSH Q4H PRN Pain, Severe (Pain Scale 7-10) Pharmacy Consult 1 each 01/20/21 21:59 Consult Rx Vancomycin Dosing MISCELLANE DAILY PRN Consult order Senna 17.2 mg 01/20/21 21:59 Sennosides 8.6 Mg Tablet PO BEDTIME PRN Constipation Sodium Chloride 3 ml 01/21/21 00:00 01/21/21 08:15 0.9 % Sodium Chloride Flush 3 Ml Syringe IVFLUSH 3 ml QSHIFT JEISON Administration Home Medications Medication Instructions Recorded Confirmed Last Taken Type ibuprofen 600 mg PO Q6H PRN 01/21/21 01/21/21 01/20/21 History Physical Exam Vital Signs: Vital Signs: Last Vital Signs Temp 98.2 F 01/21/21 11:38 Pulse 83 01/21/21 11:38 Resp 17 01/21/21 11:38 BP 131/68 01/21/21 11:38 Pulse Ox 97 01/21/21 11:38 Body Mass Index 27.1 Const: General: cooperative HENMT: Head: Yes normal to inspection Mouth: Normal oral and palatal mucosa present Resp: Effort & Inspection: normal respiratory effort Cardio: Rate: regular rate Rhythm: regular rhythm GI: Palpation (GI): Soft to palpation and nontender Skin: General skin exam: no rashes or lesions noted Extrem: Other: reddened area thigh with ROBERTH wrap,still some swelling 3 x 6 cm Results Labs CBC & Chem 7: 01/21/21 05:49 01/21/21 05:49 Labs: Short CBC 01/20/21 01/21/21 Range/Units 22:09 05:49 WBC 19.7 H 14.6 H (4.8-10.8) X10*3/uL Hgb 14.7 14.0 (14.0-18.0) g/dl Hct 41.9 L 41.5 L (42-52) % Plt Count 243 230 (160-400) X10*3/uL BMP 01/20/21 01/21/21 22:44 05:49 Sodium 138 139 Potassium 3.8 4.2 Chloride 103 108 Carbon Dioxide 23 22 BUN 13 10 Creatinine 1.44 H 1.09 Calcium 8.5 8.3 L Microbiology Microbiology Results: Microbiology 01/20/21 22:12 Thigh Right Gram Stain - Final 01/20/21 22:12 Thigh Right Routine Culture - Preliminary Culture in progress. Assessment and Plan (1) Cellulitis: Qualifiers: Laterality: right Site of cellulitis: extremity Site of cellulitis of extremity: lower extremity Qualified Code(s): L03.115 - Cellulitis of right lower limb Status: Acute Abscess also concern and concern over cellulitis Would continue with IV Vancomycin until improved and check culture and will decide ,possible po Doxycycline on discharge Surgery again if not improving?drainage
[2021-01-22 03:42] VITALS: BP 131/73; PULSE 78; RESP 18; TEMP 36.6; O2SAT 98
[2021-01-22] MEDS: Heparin Sodium,Porcine 5,000 UNIT/ML VIAL 5000 UNIT SUBCUT ×3 (06:06→22:34)
[2021-01-22 07:06] VITALS: BP 130/75; PULSE 77; RESP 16; TEMP 36.5; O2SAT 97
--- NOTE | 2021-01-22 08:29 | P.PNIM_ITS ---
Subjective Subjective Date of Service: 01/22/21 Interval History: Seen in f/u for cellulitis and abscess right [facility] Review of Systems Gen: no fever Resp: no sob, no cough CV: no chest, no HOOKS, no leg edema GI: No n/v, no abd pain Neuro: No confusion pain in right [facility] Physical Exam Vital Signs: Vital Signs: Last Vital Signs Temp 97.7 F 01/22/21 07:06 Pulse 77 01/22/21 07:06 Resp 16 01/22/21 07:06 BP 130/75 01/22/21 07:06 Pulse Ox 97 01/22/21 07:06 Body Mass Index 27.1 Const: Other: General: AO X 3, no acute distress Resp: CTA bilateral CVS: S1,S2,RRR GI: +BS, NT, no distention Skin: Neuro: motor grossly intact Psych: appropriate affect Objective Data Current Medications Generic Name Dose Route Start Last Admin Trade Name Freq PRN Reason Stop Dose Admin Acetaminophen 650 mg 01/20/21 21:59 Acetaminophen 325 Mg Tablet PO Q6H PRN Pain, Mild (Pain Scale 1-3) Heparin Sodium (Porcine) 5,000 unit 01/20/21 22:00 01/22/21 06:06 Heparin Sodium,Porcine 5,000 Unit/Ml Vial SUBCUT 5,000 unit Q8H JEISON Administration Vancomycin HCl 1,000 mg/ 270 mls @ 270 mls/hr 01/21/21 10:00 01/22/21 00:50 Sodium Chloride IV Infused Q12H JEISON Infusion Ketorolac Tromethamine 15 mg 01/20/21 22:02 01/21/21 20:23 Ketorolac Tromethamine 30 Mg/Ml Vial IVPUSH 01/25/21 22:01 15 mg Q6H PRN Administration Pain, Severe (Pain Scale 7-10) Melatonin 6 mg 01/20/21 21:59 Melatonin 3 Mg Tablet PO BEDTIME PRN Insomnia Morphine Sulfate 2 mg 01/21/21 09:45 Morphine Sulfate 4 Mg/Ml Cartridge IVPUSH Q4H PRN Pain, Severe (Pain Scale 7-10) Pharmacy Consult 1 each 01/20/21 21:59 Consult Rx Vancomycin Dosing MISCELLANE DAILY PRN Consult order Senna 17.2 mg 01/20/21 21:59 Sennosides 8.6 Mg Tablet PO BEDTIME PRN Constipation Sodium Chloride 3 ml 01/21/21 00:00 01/22/21 00:50 0.9 % Sodium Chloride Flush 3 Ml Syringe IVFLUSH Not Given QSHIFT JEISON Labs CBC & Chem 7: 01/21/21 05:49 01/21/21 05:49 Microbiology Microbiology Results: Microbiology 01/20/21 22:12 Gram Stain - Final Thigh Right Routine Culture - Preliminary Staphylococcus aureus 01/20/21 22:09 Blood Culture - Preliminary Blood - Venous 01/20/21 22:09 Blood Culture - Preliminary Blood - Venous No growth after 24 hours. Quality Stroke Does the patient have a stroke diagnosis?: No VTE Prior VTE?: No VTE Risk Level:: Medical - moderate - high VTE Device Contraindication: Treatment Not Indicated VTE Drug Contraindication: N/A - Med Ordered Assessment and Plan (1) Cellulitis: Status: Acute Assessment and Plan: 30-year-old male with no significant past medical history presented to the hospital with a chief complaint of right thigh pain redness and swelling - note of cellulitis/abscess; status post I&D in the ER. Admitted for further manageme nt. Right lateral thigh cellulitis /abscess s/p I and in ED on 01/20, US 01/21 showed no drainable abscess, area packed by surgery and no further indication for I and D per surgery. Preliminary cultures is Staph Aureus. Continue IV vancomycin. Follow culture sensitivity. ID to make final recommendation based on culture sensitivity. Follow creatinine while on Vanco Pain control with IV morphine and Toradol diet: Regular diet Code status: Full code
[2021-01-22] MEDS: 0.9 % Sodium Chloride Flush 3 ML SYRINGE IVFLUSH ×2 (08:54→15:41)
[2021-01-22 09:12] LABS: Hematocrit 40.9 % (42-52); Mean Corpuscular HGB Conc 34.2 g/dl (31.0-36.0); Mean Corpuscular Hemoglobin 28.9 pg (27.0-33.0); Mean Corpuscular Volume 84.3 fL (80-98); Mean Platelet Volume 10.1 fL (9.4-12.4); Platelet Count 281 X10*3/uL (160-400); Red Blood Count 4.85 X10*6/uL (4.60-5.80); Red Cell Distribution Width 13.2 % (11.0-16.0); White Blood Count 12.1 X10*3/uL (4.8-10.8)
[2021-01-22 09:49] LABS: Anion Gap 13 (12-20); Blood Urea Nitrogen 9 mg/dL (9-16); Carbon Dioxide 23 mmol/L (22-29); Chloride 107 mmol/L (96-108); Estimated Glomerular Filt Rate > 60; Glucose Random 103 mg/dL (60-115); Potassium 4.4 mmol/L (3.3-5.1); Sodium 139 mmol/L (135-145)
[2021-01-22 09:59] LABS: Vancomycin Trough 6.2 mcg/mL (10.0-20.0)
[2021-01-22] MEDS: vancomycin HCL 1,250 MG in 0.9 % Sodium Chloride 250 ML 166.67 MG IV ×2 (10:50→22:35)
[2021-01-22 11:22] VITALS: BP 155/78; PULSE 81; RESP 16; TEMP 36.3; O2SAT 95
--- NOTE | 2021-01-22 12:19 | PM.PNGS ---
Subjective Subjective Date of Service: 01/22/21 Interval history: Patient reports feeling improved with decreased pain in the right leg. He feels the redness has improved as well. Physical Exam Vital Signs: Vital Signs: Last Vital Signs Temp 97.4 F 01/22/21 11:22 Pulse 81 01/22/21 11:22 Resp 16 01/22/21 11:22 BP 155/78 H 01/22/21 11:22 Pulse Ox 95 01/22/21 11:22 Body Mass Index 27.1 Const: General: no acute distress and well developed Nutritional Appearance: well nourished Orientation/consciousness: patient oriented x3 Skin: Other: Warm, dry, no rash Neuro: General: patient oriented x3 Extrem: Other: dressing to right leg is clean and intact, recently changed Progress Note: A&P Assessment and plan (1) Abscess of right thigh: Status: Acute Assessment and Plan: 30-year-old male patient presenting with an abscess of the right thigh, s/p incision and drainage 2 days ago, now with improving cellulitis and decreasing WBC. Preliminary cultures reveal Staph aureus. Antibiotic management per the primary team. No additional incision and drainage required. Fall Risk Details Current Medications: Current Medications Generic Name Dose Route Start Last Admin Trade Name Freq PRN Reason Stop Dose Admin Acetaminophen 650 mg 01/20/21 21:59 Acetaminophen 325 Mg Tablet PO Q6H PRN Pain, Mild (Pain Scale 1-3) Heparin Sodium (Porcine) 5,000 unit 01/20/21 22:00 01/22/21 06:06 Heparin Sodium,Porcine 5,000 Unit/Ml Vial SUBCUT 5,000 unit Q8H JEISON Administration Vancomycin HCl 1,250 mg/ 250 mls @ 166.667 mls/hr 01/22/21 10:15 01/22/21 10:50 Sodium Chloride IV 166.67 mls/hr Q12H JEISON Administration Ketorolac Tromethamine 15 mg 01/20/21 22:02 01/21/21 20:23 Ketorolac Tromethamine 30 Mg/Ml Vial IVPUSH 01/25/21 22:01 15 mg Q6H PRN Administration Pain, Severe (Pain Scale 7-10) Melatonin 6 mg 01/20/21 21:59 Melatonin 3 Mg Tablet PO BEDTIME PRN Insomnia Morphine Sulfate 2 mg 01/21/21 09:45 Morphine Sulfate 4 Mg/Ml Cartridge IVPUSH Q4H PRN Pain, Severe (Pain Scale 7-10) Pharmacy Consult 1 each 01/20/21 21:59 Consult Rx Vancomycin Dosing MISCELLANE DAILY PRN Consult order Senna 17.2 mg 01/20/21 21:59 Sennosides 8.6 Mg Tablet PO BEDTIME PRN Constipation Sodium Chloride 3 ml 01/21/21 00:00 01/22/21 08:54 0.9 % Sodium Chloride Flush 3 Ml Syringe IVFLUSH 3 ml QSHIFT JEISON Administration Time Spent With Patient Time: Total time spent is greater than 50% in coordination of care (as documented) at patient's floor/unit and/or counseling patient: Time with patient: 15 - 24 minutes Procedures Date of Service Date of Service: 01/22/21 Quality Stroke Does the patient have a stroke diagnosis?: No VTE Prior VTE?: No VTE Risk Level:: Medical - moderate - high VTE Device Contraindication: Treatment Not Indicated VTE Drug Contraindication: N/A - Med Ordered
--- NOTE | 2021-01-22 12:54 | MHC.CM.PN ---
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 note electronic medical record reviewed along with case discussed with staff nurse , met with ppatient he is s/p incisionand drainage in the er, of the right thigh cellulitis and abscess , ct showed no drainable abscess , followed by id physician adn recomending continuation of iv abx until improvemnt and final culture reports are vack , patient reciving iv morphhine and iv toradol for pain management , lawn care worker to continue to follow for ANY CHnges in dischaRGE NEEDS DIANCHARGE PLAN ANTICIPATE DISCHARGED HOME NO SERVICES (ANTICIPATE ORAL BX) PCP Ptient to call for follow up for post hospital discharge transportation partient to self arrange he will need return to work note
[2021-01-22 15:17] VITALS: BP 144/84; PULSE 83; RESP 20; TEMP 36.6; O2SAT 95
[2021-01-22 19:24] VITALS: BP 136/84; PULSE 89; RESP 20; TEMP 36.6; O2SAT 95
[2021-01-22 23:32] VITALS: BP 138/89; PULSE 88; RESP 18; TEMP 36.8; O2SAT 95
[2021-01-23 04:00] VITALS: BP 121/79; PULSE 90; RESP 16; TEMP 36.7; O2SAT 98
[2021-01-23] MEDS: Heparin Sodium,Porcine 5,000 UNIT/ML VIAL 5000 UNIT SUBCUT ×2 (06:35→12:56)
[2021-01-23 07:40] VITALS: BP 154/83; PULSE 70; RESP 17; TEMP 36.6; O2SAT 98
[2021-01-23] MEDS: 0.9 % Sodium Chloride Flush 3 ML SYRINGE IVFLUSH (07:52)
--- NOTE | 2021-01-23 10:46 | PM.PNGS ---
Subjective Subjective Date of Service: 01/23/21 Interval history: Reports some soreness from his right leg but generally feels improved. Dressings noted to be leaking. Physical Exam Vital Signs: Vital Signs: Last Vital Signs Temp 97.8 F 01/23/21 07:40 Pulse 70 01/23/21 07:40 Resp 17 01/23/21 07:40 BP 154/83 H 01/23/21 07:40 Pulse Ox 98 01/23/21 07:40 Body Mass Index 27.1 Const: General: no acute distress Nutritional Appearance: well nourished Orientation/consciousness: patient oriented x3 Resp: Effort & Inspection: normal respiratory effort Skin: Other: Warm, dry, no rash Neuro: General: patient oriented x3 Extrem: Other: dressing changed the right leg. Wick is removed. No fluctuance is identified. Mild inflammatory changes surrounding the incision. Minimal erythema is identified. No evidence of undrained abscess at this time. Bloody purulence noted on dressings. Clean dressings applied. Progress Note: A&P Assessment and plan (1) Abscess of right thigh: Status: Acute Assessment and Plan: 30-year-old male with an abscess of the right thigh status post incision and drainage. Wounds are clean and draining appropriately. Dressings were changed today and cellulitis appears much improved. Wound cultures revealed MRSA Sensitive to Bactrim and clindamycin. If patient is to be discharged I will follow him up in the office in approximately 1 week for wound check. Fall Risk Details Current Medications: Current Medications Generic Name Dose Route Start Last Admin Trade Name Freq PRN Reason Stop Dose Admin Acetaminophen 650 mg 01/20/21 21:59 Acetaminophen 325 Mg Tablet PO Q6H PRN Pain, Mild (Pain Scale 1-3) Heparin Sodium (Porcine) 5,000 unit 01/20/21 22:00 01/23/21 06:35 Heparin Sodium,Porcine 5,000 Unit/Ml Vial SUBCUT 5,000 unit Q8H JEISON Administration Vancomycin HCl 1,250 mg/ 250 mls @ 166.667 mls/hr 01/22/21 10:15 01/23/21 00:06 Sodium Chloride IV Infused Q12H JEISON Infusion Ketorolac Tromethamine 15 mg 01/20/21 22:02 01/21/21 20:23 Ketorolac Tromethamine 30 Mg/Ml Vial IVPUSH 01/25/21 22:01 15 mg Q6H PRN Administration Pain, Severe (Pain Scale 7-10) Melatonin 6 mg 01/20/21 21:59 Melatonin 3 Mg Tablet PO BEDTIME PRN Insomnia Morphine Sulfate 2 mg 01/21/21 09:45 Morphine Sulfate 4 Mg/Ml Cartridge IVPUSH Q4H PRN Pain, Severe (Pain Scale 7-10) Pharmacy Consult 1 each 01/20/21 21:59 Consult Rx Vancomycin Dosing MISCELLANE DAILY PRN Consult order Senna 17.2 mg 01/20/21 21:59 Sennosides 8.6 Mg Tablet PO BEDTIME PRN Constipation Sodium Chloride 3 ml 01/21/21 00:00 01/23/21 07:52 0.9 % Sodium Chloride Flush 3 Ml Syringe IVFLUSH 3 ml QSHIFT JEISON Administration Time Spent With Patient Time: Total time spent is greater than 50% in coordination of care (as documented) at patient's floor/unit and/or counseling patient: Time with patient: 15 - 24 minutes Procedures Date of Service Date of Service: 01/23/21 Quality Stroke Does the patient have a stroke diagnosis?: No VTE Prior VTE?: No VTE Risk Level:: Medical - moderate - high VTE Device Contraindication: Treatment Not Indicated VTE Drug Contraindication: N/A - Med Ordered
--- NOTE | 2021-01-23 11:12 | MHC.CM.PN ---
Addendum entered by Yoly Niño 01/23/21 13:32: DISCHARGED ORDEREDS REVIEWED PATENT EVALUATED BY THE SURGEONS AND ID PHYSICIAN PACKING HAS COME OUT DRY DRESSING TO THE AREA PATIENT HAS BEEN CONVERTED OVER TO ORAL [employer]XYCYLINE, WILL NEED TO FOLLOW UP WITH SURGEON PWER DISCHARGED INSTRUCTIONS . 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
[2021-01-23 11:27] VITALS: BP 135/78; PULSE 78; RESP 17; TEMP 36.4; O2SAT 97
--- NOTE | 2021-01-23 11:41 | PM.DS ---
DS: Providers Provider Date of Service: 01/23/21 Date of admission: 01/20/21 22:00 Primary care physician: Unknown Physician Consults: 01/21/21 00:07 Consult to Infectious Diseases Routine Consulting Provider: Hannah Hutson Reason for consultation: thigh celluilitis/?bug bite 01/21/21 11:18 Consult to General Surgery Routine Consulting Provider: [facility] [place] [facility] Reason for consultation: Tigh abscess DS: Diagnosis Discharge Diagnosis (1) Abscess of right thigh: Status: Acute DS: Medications Discharge Medications Home Medications: Home Medications Medication Instructions Recorded Confirmed ibuprofen 600 mg PO Q6H PRN 01/21/21 01/21/21 Previous Rx's Medication Instructions Recorded sulfamethoxazole-trimethoprim 1 tab PO Q12H 7 Days #14 tab 01/18/21 [Bactrim DS] DS: Summary Hospital Course Hospital Course: Admission HPI: 30-year-old male with no significant past medical history presented to the hospital with a chief complaint of right thigh pain redness and swelling for the past few days; patient reported that he probably had a bug bite while 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 presented to the ER on 01/18/2021-noted to have thigh cellulitis given Bactrim and discharged home; patient reported that since he went home, he continued to have pain redness and swelling and later noted to have serosanguineous discharge. In ED area was I and D, packedand was put on Vancomycin and admitted. Hospital coruse: While inpatient was treated with IV vancomycin, cultures are now growing MRSA, he was evaluated by ID and Surgery--packing has come out, redness around wound is better. Will discharge with Oral Doxycyline for 1 more week and should follow up with Dr. Cleary (Surgeon) in a week. Advise to come back if not getting better. Dry dressing to the area. WBC has come down from 19 to 12 and no fever. Final Diagnosis: Cellulitis of tigh Right abscess Time Spent with Patient Time attestation: Total time spent providing and/or coordinating discharge services: Discharge coordination time: Greater than 30 minutes Quality: Stroke Does the patient have a stroke diagnosis?: No Physical Exam Vital Signs: Vital Signs: Last Vital Signs Temp 97.5 F 01/23/21 11:27 Pulse 78 01/23/21 11:27 Resp 17 01/23/21 11:27 BP 135/78 01/23/21 11:27 Pulse Ox 97 01/23/21 11:27 Body Mass Index 27.1 Const: Other: General: AO X 3, no acute distress Resp: CTA bilateral CVS: S1,S2,RRR GI: +BS, NT, no distention Skin: right tigh area wound dressing in place, Neuro: motor grossly intact Psych: appropriate affect DS: Data Data Completed and Pending Labs on day of discharge: Preliminary micro results at discharge 01/20/21 22:09 Blood Culture - Preliminary Blood - Venous No growth after 48 hours. 01/20/21 22:09 Blood Culture - Preliminary Blood - Venous Discharge Plan Discharge Anticipated Discharge Date/Time: 01/23/21 11:34 Patient Disposition: Home, Self-Care Discharge Diagnosis: Cellulitis and abscess of the tight Referrals: Tomi Parkinson MD [Physician] - 1 Week (call for appointment) Physician,Elena [Primary Care Provider] - 1 Week Discharge Medications: New doxycycline hyclate 100 mg capsule 100 mg PO DAILY Qty: 14 RF: 0 oxycodone 5 mg tablet 5 mg PO Q6H PRN (Reason: pain (scale score 7-10)) Qty: 7 RF: 0 Continued ibuprofen 600 mg tablet 600 mg PO Q6H PRN (Reason: Pain (Scale Score 4-6)) RF: 0 Discontinued sulfamethoxazole-trimethoprim [Bactrim DS] 800-160 mg tablet 1 tab PO Q12H 7 Days Qty: 14 RF: 0 Discharge Orders: Discharge Order (Routine); Ordered 01/23/21 Ordered By: Ricardo Guevara Diet: advance to usual diet Activity on Discharge: As tolerated Stand Alone Forms: Patient Portal Discharge page Care Plan Goals: Full resolution of Cellulitis and and abscess Health Concerns: Cellulitis and abscess of the tigh Plan of Treatment: Take Doxycline as ordered and follow up with Dr. Cleary Assessment: As above Discharge Date/Time: 01/23/21 15:43
[2021-01-23] MEDS: vancomycin HCL 1,250 MG in 0.9 % Sodium Chloride 250 ML 166.67 MG IV (12:55)
--- NOTE | 2021-01-23 14:37 | PC.NURSE ---
Skin/wound assessment completed today. Patient had an abcess on right thigh. I & D performed in ER and packed with wet gauze and gauze roll. Surgery changed dressing today. Patient is being discharged today.
== END 2021-01-23 15:43 | disposition home or self-care (01) | DRG 383 ==
LOC: HO.ED 22:54 → HO.S3 23:02
PROVIDERS: Nurse Practitioner Family; Admitting Provider Hospitalist; Emergency Provider Emergency Medicine; Visit Provider Internal Medicine
DX: L02.415 Cutaneous abscess of right lower limb (principal); B95.62 Methicillin resistant Staphylococcus aureus infection as the cause of diseases classified elsewhere; L03.115 Cellulitis of right lower limb; Z20.822 Contact with and (suspected) exposure to COVID-19; Z88.0 Allergy status to penicillin; Z79.1 Long term (current) use of non-steroidal anti-inflammatories (NSAID)
CPT/HCPCS: 36415; 76882; 80048; 80202; 83605; 85025; 85027; 85610; 85730; 87040; 87071; 87077; 87186; 87205; 87635; 90715; 99284; 99285; J1885; J3370

== ENCOUNTER 2021-11-13 16:14 | Emergency (ER) | payer OTHER, SELFPAY ==
[2021-11-13 16:21] VITALS: BP 200/108; PULSE 87; RESP 16; TEMP 36.7; O2SAT 99; BMI 27.6
--- NOTE | 2021-11-13 17:43 | ED_ITS ---
HPI - General Adult General Chief complaint: General Medical Stated complaint: high bp Source: patient Mode of arrival: ambulatory Limitations: no limitations History of Present Illness HPI narrative: 31-year-old male presents for elevated blood pressure. Was sent in by his dentist because of a blood pressure that was about 200/100. Patient had an appointment with his primary care physician for elevated blood pressures in the past however he did miss those appointments and was never treated. He does have a significant family history of blood pressure problems, both his parents take blood pressure medications. Onset (ago): month(s) Radiation: non-radiation Severity: moderate Relieving factors: none Exacerbating factors: none Associated symptoms: denies other symptoms Treatments prior to arrival: none Related Data Home Medications Medication Instructions Recorded Confirmed ibuprofen 600 mg tablet 600 mg PO Q6H PRN 01/21/21 01/21/21 Previous Rx's Medication Instructions Recorded doxycycline hyclate 100 mg capsule 100 mg PO DAILY #14 cap 01/23/21 oxycodone 5 mg tablet 5 mg PO Q6H PRN #7 tab 01/23/21 amlodipine 5 mg tablet 5 mg PO DAILY #30 tab 11/13/21 Allergies Allergy/AdvReac Type Severity Reaction Status Date / Time Penicillins Allergy Swelling Verified 01/18/21 20:40 Review of Systems Review of Systems: Constitutional: No Fever, No Chills ENT/Mouth: No Ear Pain, No Hoarseness, No sore throat Eyes: No Eye Pain, No Swelling, No Redness, No Foreign Body Cardiovascular: No Chest Pain, No SOB Respiratory: No Cough, No Dyspnea Gastrointestinal: No Nausea, No Vomiting, No Diarrhea, No abdominal Pain Genitourinary: No Dysuria, No Hematuria Musculoskeletal: No joint pain, No Myalgias, No Joint Swelling Skin: No Skin lacerations, No rash Neuro: No Weakness, No Numbness, No Paresthesias, No Loss of Consciousness, No Dizziness, No Headache Psych: No Anxiety/Panic, No Depression Heme/Lymph: no easy bruising, no Lymphadenopathy Endocrine: No Polyuria, No Polydipsia Yes all other systems are reviewed and are negative [facility] Past Medical History Attestation statement: The following information was validated with the patient. Source: old records reviewed Medical History Asthma Social History Social History Household Members: Family Housing: House Do you presently have visiting nurse or other home services: No Patient Tobacco Use Status: Never used Tobacco Advance Directives: No Advance Directives Information Provided: No service: No Current occupational status: employed Physical Exam ED Vital Signs: Vital Signs - 24 hr 11/13/21 16:21 Temperature 98.1 F Pulse Rate 87 Respiratory Rate 16 Blood Pressure 200/108 H Pulse Oximetry 99 BMI result Body Mass Index 27.6 Appearance: Alert. Oriented X3. No acute distress. Eyes: Pupils equal, round and reactive to light. EOMI. Sclera nonicteric. ENT: Pharynx normal. Neck: Normal inspection. Neck supple. CVS: Normal heart rate and rhythm. Pulses normal. Respiratory: No respiratory distress. Breath sounds normal. Abdomen: Soft and nontender. Skin: Skin warm and dry. Normal skin color. Normal skin turgor. Extremities: No lower extremity edema. Gait well balanced well coordinated. Neuro: No motor deficit. No sensory deficit. Cranial nerves 2-12 intact. Course Course Course Narrative: 31-year-old male presents with elevated blood pressures. Has had elevated blood pressures for quite some time, unable to get into his primary care physician and missed his last appointment. Was referred to the ED by his dentist because of a blood pressure of 200/108. Will order labs, has a longstanding family history of hypertension. Will start amlodipine. Patient verbalized understanding of and agrees to plan of care to discharge home. Verbalized understanding of signs and symptoms indicating need for emergent intervention Medical Decision Making MDM Narrative Medical decision making narrative: Uncontrolled hypertension Medical Records Medical records reviewed: Yes I reviewed the patient's medical records. Lab Data Lab results reviewed: Yes I reviewed the patient's lab results. Result diagrams: 11/13/21 18:22 11/13/21 18:22 Labs: Lab Results 11/13/21 11/13/21 Range/Units 18:22 18:22 WBC 9.1 (4.8-10.8) X10*3/uL RBC 5.44 (4.60-5.80) X10*6/uL Hgb 15.7 (14.0-18.0) g/dl Hct 44.7 (42.0-52.0) % MCV 82.2 (80.0-98.0) fL MCH 28.9 (27.0-33.0) pg MCHC 35.1 (31.0-36.0) g/dl RDW 13.1 (11.0-16.0) % Plt Count 256 (160-400) X10*3/uL MPV 9.9 (9.4-12.4) fL Immature Gran % (Auto) 0.2 (0.0-0.4) % Neut % (Auto) 62.3 (45-73) % Lymph % (Auto) 25.0 (20-40) % [place] % (Auto) 11.4 H (2-11) % Eos % (Auto) 0.9 (0-4) % Baso % (Auto) 0.2 (0-2) % Lymph # (Auto) 2.3 (1.2-4.9) X10*3/uL [place] # (Auto) 1.0 (0.1-1.2) X10*3/uL Eos # (Auto) 0.1 (0.0-0.4) X10*3/uL Baso # (Auto) 0.0 (0.0-0.2) X10*3/uL Abs Immat Gran (auto) 0.02 (0.00-0.03) X10*3/uL Absolute Neuts (auto) 5.7 (2.0-8.3) x10*3/uL Absolute Nucleated RBC 0.000 (0.0-0.012) X10*3/uL Nucleated RBC % (auto) 0.0 (0.0-0.2) /100WBC Sodium 137 (135-145) mmol/L Potassium 4.2 (3.3-5.1) mmol/L Chloride 106 (96-108) mmol/L Carbon Dioxide 24 (22-29) mmol/L Anion Gap 11 L (12-20) BUN 19 H (9-16) mg/dL Creatinine 0.99 (0.5-1.4) mg/dL Estim Creat Clear Calc 115.1 Estimated GFR > 60 Random Glucose 88 (60-115) mg/dL Calcium 9.8 D (8.4-10.2) mg/dL Discharge Plan Discharge Clinical Impression: Hypertension Patient Disposition: Home, Self-Care Instructions: Hypertension (ED) Additional Instructions: You were evaluated for elevated blood pressure. We started you on amlodipine 5 mg daily. Please take this medication as directed. Take this medication every day You must follow up with primary care physician Thank you for choosing this emergency department for evaluation. Please follow-up with primary care physician as needed. Return to the emergency department for any new, concerning, or worsening symptoms. Prescriptions: New amlodipine 5 mg tablet 5 mg PO DAILY Qty: 30 2RF No Action ibuprofen 600 mg tablet 600 mg PO Q6H PRN (Reason: Pain (Scale Score 4-6)) 0RF doxycycline hyclate 100 mg capsule 100 mg PO DAILY Qty: 14 0RF oxycodone 5 mg tablet 5 mg PO Q6H PRN (Reason: pain (scale score 7-10)) Qty: 7 0RF Referrals: Adriano Graf PA-C [Primary Care Provider] - (Hypertension) Interventions: ED Discharge Assessment Last Done: 11/13/21 19:02 Discharge Date/Time: 11/13/21 19:05
[2021-11-13 18:26] LABS: MANUAL DIFF FLAG NO
[2021-11-13] MEDS: amLODIPine Besylate 5 MG TABLET PO (18:31)
[2021-11-13 18:34] LABS: Basophils Percent Auto 0.2 % (0-2); Eosinophils Absolute Auto 0.1 X10*3/uL (0.0-0.4); Eosinophils Percent Auto 0.9 % (0-4); Hematocrit 44.7 % (42.0-52.0); Hemoglobin 15.7 g/dl (14.0-18.0); Imm Gran Abs Auto 0.02 X10*3/uL (0.00-0.03); Imm Gran Pct Auto 0.2 % (0.0-0.4); Lymphocytes Absolute Auto 2.3 X10*3/uL (1.2-4.9); Mean Corpuscular HGB Conc 35.1 g/dl (31.0-36.0); Mean Corpuscular Hemoglobin 28.9 pg (27.0-33.0); Mean Corpuscular Volume 82.2 fL (80.0-98.0); Mean Platelet Volume 9.9 fL (9.4-12.4); Monocytes Percent Auto 11.4 % (2-11); Neutrophils Absolute Auto 5.7 x10*3/uL (2.0-8.3); Neutrophils Percent Auto 62.3 % (45-73); Platelet Count 256 X10*3/uL (160-400); Red Blood Count 5.44 X10*6/uL (4.60-5.80); Red Cell Distribution Width 13.1 % (11.0-16.0); White Blood Count 9.1 X10*3/uL (4.8-10.8)
[2021-11-13 18:54] LABS: Anion Gap 11 (12-20); Blood Urea Nitrogen 19 mg/dL (9-16); Calcium 9.8 mg/dL (8.4-10.2); Carbon Dioxide 24 mmol/L (22-29); Chloride 106 mmol/L (96-108); Creatinine Clr Calc Pharmacy 115.1; Estimated Glomerular Filt Rate > 60; Glucose Random 88 mg/dL (60-115); Potassium 4.2 mmol/L (3.3-5.1); Sodium 137 mmol/L (135-145)
== END 2021-11-13 19:05 | disposition home or self-care (01) ==
PROVIDERS: Nurse Practitioner Family; Emergency Provider Internal Medicine; PCP Physician Assistant
DX: I10 Essential (primary) hypertension (principal); J45.909 Unspecified asthma, uncomplicated
CPT/HCPCS: 36415; 80048; 85025; 99283

== ENCOUNTER 2022-10-02 14:31 | Emergency (ER) | payer OTHER, SELFPAY ==
--- NOTE | ~2022-10-02 | CT_ITS ---
EXAMINATION: CT HEAD WITHOUT CONTRAST CLINICAL INFORMATION: Headache COMPARISON: None available. TECHNIQUE: Contiguous axial imaging was performed from the skull base to vertex without intravenous administration of contrast. This CT examination was performed using dose optimization techniques as appropriate, variously including the following: *Automated exposure control *Adjustment of mA and/or kV according to patient size (this includes techniques or standardized protocols for targeted exams where dose is matched to indication/reason for exam; i.e. extremities or head) *Use of iterative reconstruction technique DLP: 779 mGy-cm FINDINGS: There is no evidence of acute intracranial hemorrhage or territorial infarction. No abnormal mass effect or midline shift is seen. Goldberg to white matter differentiation is well preserved. No extra-axial fluid collections are identified. The ventricles are normal in size. No abnormal attenuation in the brain parenchyma. No acute calvarial fracture.. Paranasal sinuses and mastoid air cells are well-aerated. CT/CT head/brain wo IV con IMPRESSION: No CT evidence of acute intracranial hemorrhage or edematous territorial infarction..
[2022-10-02 15:13] VITALS: BP 162/106; PULSE 95; RESP 16; TEMP 36.4; O2SAT 96; BMI 27.1
--- NOTE | 2022-10-02 15:13 | ED_ITS ---
HPI - General Adult General Chief complaint: Recheck/Abnormal Lab/Rx <JAGDISH Erickson - Last Filed: 10/02/22 15:15> Stated complaint: high bp <JAGDISH Erickson - Last Filed: 10/02/22 15:15> Time Seen by Provider: 10/02/22 15:36 <JAGDISH Erickson - Last Filed: 10/02/22 15:15> History of Present Illness HPI narrative: patient complains of gradual onset headache which began this morning early then escalated over several hours and he did go to someone on his job who checked his blood pressure and it was 170 at work, his headache did resolve and completely get better after his co-worker gave him Tylenol, right now he has no headache, the headache was a gradual onset headache not accompanied by fever no weakness no trauma no fainting no dizziness no confusion, no nausea or vomiting no loss of balance no chest pain no palpitations no difficulty breathing no leg swelling no calf pain <JAGDISH Aguila Last Filed: 10/03/22 11:09> Related Data Home medications: Previous Rx's Medication Instructions Recorded amlodipine 5 mg tablet 5 mg PO DAILY 90 days #90 tabs 02/23/22 blood pressure test kit-large #1 ea 02/23/22 <JAGDISH Erickson - Last Filed: 10/02/22 15:15> Allergies/adverse reactions: Allergies Allergy/AdvReac Type Severity Reaction Status Date / Time Penicillins Allergy Swelling Verified 10/02/22 15:12 <JAGDISH Erickson - Last Filed: 10/02/22 15:15> [facility] Past Medical History Source: nursing notes reviewed <JAGDISH Aguila - Last Filed: 10/03/22 11:09> Medical History: Medical History (Updated 10/03/22 @ 00:00 by Saloni Leon) Asthma Hypertension <JAGDISH Erickson - Last Filed: 10/02/22 15:15> Surgical History: Surgical History History of elbow surgery History of knee surgery <JAGDISH Erickson Last Filed: 10/02/22 15:15> Family History Family History: Family History Mother Anxiety Depressed Other Mental health disorder <JAGDISH Erickson - Last Filed: 10/02/22 15:15> Social History Social History: Social History Household Members: Family Housing: House Do you presently have visiting nurse or other home services: No Alcohol intake: current Alcohol intake frequency: holidays/special occasions only Alcohol type: beer Patient Tobacco Use Status: Never used Tobacco Smoked in Last 30 Days: No e-Cigarette/Vaping Use: Never Used Second Hand Smoke Exposure: No Use of substances other than those prescribed or required for medical reasons: No Advance Directives: No Advance Directives Information Provided: No service: No Current occupational status: employed Current occupation: [employer] Cognitive needs: No Hearing needs: No Vision needs: Yes (Glasses) <JAGDISH Erickson - Last Filed: 10/02/22 15:15> Physical Exam ED Vital Signs: Vital Signs - 24 hr 10/02/22 15:13 10/02/22 15:46 10/02/22 19:10 Temperature 97.6 F 98.2 F Pulse Rate 95 84 76 Respiratory Rate 16 16 16 Blood Pressure 162/106 H 150/102 H 145/97 H Pulse Oximetry 96 97 96 Oxygen Delivery Method Room Air Room Air Room Air BMI result Body Mass Index 27.1 <JAGDISH Erickson - Last Filed: 10/02/22 15:15> Vital Signs - 24 hr 10/02/22 15:13 10/02/22 15:46 10/02/22 19:10 Temperature 97.6 F 98.2 F Pulse Rate 95 84 76 Respiratory Rate 16 16 16 Blood Pressure 162/106 H 150/102 H 145/97 H Pulse Oximetry 96 97 96 Oxygen Delivery Method Room Air Room Air Room Air BMI result Body Mass Index 27.1 <JAGDISH Aguila - Last Filed: 10/03/22 11:09> General appearance no acute distress, comfortable cooperative The head is normocephalic atraumatic The pupils equal round reactive to light extraocular motions are intact The pharynx is clear mucous membranes moist Neck is supple Chest clear to auscultation with full symmetric equal breath sounds Heart no murmur Abdomen soft nontender Extremities full range of motion x4 Skin no rashes Neuro gait and balance are normal, interaction comprehension and expression are normal, cranial nerves 2-12 intact as tested no facial asymmetry, cerebellar ex am [id number] is normal, and motor is 5/5 x4 and sensation is intact and symmetrical in extremities <JAGDISH Aguila Last Filed: 10/03/22 11:09> Course Course Course Narrative: RME performed by Mirian Israel PA-C. Patient is a 32 year old male presenting to the emergency department with a headache and high blood pressure. Patient states that he takes medicaiton for his blood pressure. Patient states that the headache went away with ASA. Labs ordered. Patient placed back in the waiting room pending results and room availability. <JAGDISH Erickson Last Filed: 10/02/22 15:15> RME performed by Mirian Israel PA-C. Patient is a 32 year old male presenting to the emergency department with a headache and high blood pressure. Patient states that he takes medicaiton for his blood pressure. Patient states that the headache went away with ASA. Labs ordered. Patient placed back in the waiting room pending results and room availability. Head CT was checked, no significant abnormalities no tumors no bleeds patient had a very gradual onset headache, no thunderclap headache which resolved with an [id number] pain reliever His main concern was that his blood pressure might not be well controlled with Norvasc 5 mg a day which he does take reliably Creatinine was checked and it was 1.42 higher limit of normal, and he is advised to follow again with his doctor and get it rechecked in coming weeks He is also advised to monitor his blood pressure at home and to make an appointment with his doctor to make sure that he does not need additional medication to control his blood pressure Well-appearing patient was discharged EKG was checked and was a normal sinus rhythm rate 86, NC interval and QRS duration normal, no acute ischemic findings no acute abnormalities Other lab work was without acute abnormality Well-appearing patient with headache resolved is discharged <JAGDISH Aguila Last Filed: 10/03/22 11:09> Medical Decision Making Lab Data MDM Lab Attestation statement: I reviewed the patient's lab results. <JAGDISH Aguila Last Filed: 10/03/22 11:09> Result Diagrams: 10/02/22 15:26 10/02/22 15:26 <JAGDISH Erickson - Last Filed: 10/02/22 15:15> Labs: Lab Results 10/02/22 10/02/22 Range/Units 15:26 15:26 WBC 10.0 (4.8-10.8) X10*3/uL RBC 5.61 (4.60-5.80) X10*6/uL Hgb 16.2 (14.0-18.0) g/dl Hct 46.0 (42.0-52.0) % MCV 82.0 (80.0-98.0) fL MCH 28.9 (27.0-33.0) pg MCHC 35.2 (31.0-36.0) g/dl RDW 13.0 (11.0-16.0) % Plt Count 257 (160-400) X10*3/uL MPV 10.1 (9.4-12.4) fL Immature Gran % (Auto) 0.2 (0.0-0.4) % Neut % (Auto) 69.4 (45-73) % Lymph % (Auto) 19.5 L (20-40) % [place] % (Auto) 9.7 (2-11) % Eos % (Auto) 0.8 (0-4) % Baso % (Auto) 0.4 (0-2) % Lymph # (Auto) 2.0 (1.2-4.9) X10*3/uL [place] # (Auto) 1.0 (0.1-1.2) X10*3/uL Eos # (Auto) 0.1 (0.0-0.4) X10*3/uL Baso # (Auto) 0.0 (0.0-0.2) X10*3/uL Abs Immat Gran (auto) 0.02 (0.00-0.03) X10*3/uL Absolute Neuts (auto) 6.9 (2.0-8.3) x10*3/uL Absolute Nucleated RBC 0.000 (0.0-0.012) X10*3/uL Nucleated RBC % (auto) 0.0 (0.0-0.2) /100WBC Sodium 139 (135-145) mmol/L Potassium 4.0 (3.3-5.1) mmol/L Chloride 103 (96-108) mmol/L Carbon Dioxide 27 (22-29) mmol/L Anion Gap 13 (12-20) BUN 14 (9-16) mg/dL Creatinine 1.42 H (0.5-1.4) mg/dL Estim Creat Clear Calc 79.5 Estimated GFR 58 Random Glucose 82 (60-115) mg/dL Calcium 9.4 (8.4-10.2) mg/dL Magnesium 2.2 (1.6-2.6) mg/dL Total Bilirubin 0.6 (0.0-1.0) mg/dL AST 26 (5-37) U/L ALT 31 (0-40) U/L Alkaline Phosphatase 84 (39-117) U/L Total Protein 7.3 (6.5-8.0) g/dL Albumin 4.3 (3.5-5.0) g/dL <JAGDISH Erickson - Last Filed: 10/02/22 15:15> Lab Results 10/02/22 10/02/22 Range/Units 15:26 15:26 WBC 10.0 (4.8-10.8) X10*3/uL RBC 5.61 (4.60-5.80) X10*6/uL Hgb 16.2 (14.0-18.0) g/dl Hct 46.0 (42.0-52.0) % MCV 82.0 (80.0-98.0) fL MCH 28.9 (27.0-33.0) pg MCHC 35.2 (31.0-36.0) g/dl RDW 13.0 (11.0-16.0) % Plt Count 257 (160-400) X10*3/uL MPV 10.1 (9.4-12.4) fL Immature Gran % (Auto) 0.2 (0.0-0.4) % Neut % (Auto) 69.4 (45-73) % Lymph % (Auto) 19.5 L (20-40) % [place] % (Auto) 9.7 (2-11) % Eos % (Auto) 0.8 (0-4) % Baso % (Auto) 0.4 (0-2) % Lymph # (Auto) 2.0 (1.2-4.9) X10*3/uL [place] # (Auto) 1.0 (0.1-1.2) X10*3/uL Eos # (Auto) 0.1 (0.0-0.4) X10*3/uL Baso # (Auto) 0.0 (0.0-0.2) X10*3/uL Abs Immat Gran (auto) 0.02 (0.00-0.03) X10*3/uL Absolute Neuts (auto) 6.9 (2.0-8.3) x10*3/uL Absolute Nucleated RBC 0.000 (0.0-0.012) X10*3/uL Nucleated RBC % (auto) 0.0 (0.0-0.2) /100WBC Sodium 139 (135-145) mmol/L Potassium 4.0 (3.3-5.1) mmol/L Chloride 103 (96-108) mmol/L Carbon Dioxide 27 (22-29) mmol/L Anion Gap 13 (12-20) BUN 14 (9-16) mg/dL Creatinine 1.42 H (0.5-1.4) mg/dL Estim Creat Clear Calc 79.5 Estimated GFR 58 Random Glucose 82 (60-115) mg/dL Calcium 9.4 (8.4-10.2) mg/dL Magnesium 2.2 (1.6-2.6) mg/dL Total Bilirubin 0.6 (0.0-1.0) mg/dL AST 26 (5-37) U/L ALT 31 (0-40) U/L Alkaline Phosphatase 84 (39-117) U/L Total Protein 7.3 (6.5-8.0) g/dL Albumin 4.3 (3.5-5.0) g/dL <JAGDISH Aguila - Last Filed: 10/03/22 11:09> Discharge Plan Discharge Clinical Impression: Elevated blood pressure reading, Headache <JAGDISH Erickson - Last Filed: 10/02/22 15:15> Patient Disposition: Home, Self-Care <JAGDISH Erickson - Last Filed: 10/02/22 15:15> Additional Instructions: your blood pressure was elevated on 2 readings in the ER, so best plan is to follow with primary doctor to see if you need an adjustment in her blood pressure controlling medications It is also good plan to use a home blood pressure cuff and keep a record of the readings, take the readings when you are relaxed and write them down The blood test for your kidneys was slightly above normal, and it should be reach checked within a month at your doctor's office Your CT scan of your head was normal with no evidence of bleeding or tumor or any abnormality Return any time any worse condition or any concerns <JAGDISH Erickson - Last Filed: 10/02/22 15:15> Prescriptions: No Action amlodipine 5 mg tablet 5 mg PO DAILY 90 Days Qty: 90 1RF (DME) blood pressure test kit-large Kit See Rx Instructions .Route Qty: 1 0RF Rx Instructions: As directed <JAGDISH Erickson - Last Filed: 10/02/22 15:15> Stand Alone Forms: Work/School Release <JAGDISH Erickson - Last Filed: 10/02/22 15:15> Interventions: ED Discharge Assessment Last Done: 10/02/22 19:17 <JAGDISH Erickson - Last Filed: 10/02/22 15:15> Discharge Date/Time: 10/02/22 19:18 <JAGDISH Erickson - Last Filed: 10/02/22 15:15>
--- NOTE | 2022-10-02 15:15 | ECG_ITS ---
Test Reason : high bp Blood Pressure : / mmHG Vent. Rate : 086 BPM Atrial Rate : 086 BPM P-R Int : 132 ms QRS Dur : 092 ms QT Int : 360 ms P-R-T Axes : 046 030 -01 degrees QTc Int : 430 ms Normal sinus rhythm Normal ECG No previous ECGs available Referred By: Mirian Israel Electronically Signed By:Chandler Molina
[2022-10-02 15:31] LABS: Basophils Percent Auto 0.4 % (0-2); Eosinophils Absolute Auto 0.1 X10*3/uL (0.0-0.4); Eosinophils Percent Auto 0.8 % (0-4); Mean Platelet Volume 10.1 fL (9.4-12.4); PLT CLUMP 1; SCAN SMEAR FLAG 1
[2022-10-02 15:33] LABS: Hemoglobin 16.2 g/dl (14.0-18.0); Imm Gran Abs Auto 0.02 X10*3/uL (0.00-0.03); Imm Gran Pct Auto 0.2 % (0.0-0.4); Lymphocytes Percent Auto 19.5 % (20-40); Mean Corpuscular HGB Conc 35.2 g/dl (31.0-36.0); Mean Corpuscular Hemoglobin 28.9 pg (27.0-33.0); Monocytes Percent Auto 9.7 % (2-11); Neutrophils Absolute Auto 6.9 x10*3/uL (2.0-8.3); Neutrophils Percent Auto 69.4 % (45-73); Red Blood Count 5.61 X10*6/uL (4.60-5.80)
[2022-10-02 15:36] LABS: MANUAL DIFF FLAG NO; Platelet Count 257 X10*3/uL (160-400)
[2022-10-02 15:46] VITALS: BP 150/102; PULSE 84; RESP 16; TEMP 36.8; O2SAT 97
[2022-10-02 15:49] LABS: Alanine Aminotransferase 31 U/L (0-40); Albumin Level 4.3 g/dL (3.5-5.0); Alkaline Phosphatase 84 U/L (39-117); Anion Gap 13 (12-20); Aspartate Amino Transferase 26 U/L (5-37); Bilirubin Total 0.6 mg/dL (0.0-1.0); Blood Urea Nitrogen 14 mg/dL (9-16); Calcium 9.4 mg/dL (8.4-10.2); Carbon Dioxide 27 mmol/L (22-29); Chloride 103 mmol/L (96-108); Creatinine Clr Calc Pharmacy 79.5; Estimated Glomerular Filt Rate 58; Glucose Random 82 mg/dL (60-115); Magnesium 2.2 mg/dL (1.6-2.6); Sodium 139 mmol/L (135-145); Total Protein 7.3 g/dL (6.5-8.0)
--- NOTE | 2022-10-02 16:07 | PC.NURSE ---
Addendum entered by Angie Tamayo RN 10/02/22 16:08: pt states he took medication for headache at work not in triage. Original Note: patient a&ox3, pt continues to be hypertensive, c/o 2/10 headache-pt medicated for headache in triage, call west within reach, awaiting provider, will continue to monitor.
[2022-10-02 19:10] VITALS: BP 145/97; PULSE 76; RESP 16; O2SAT 96
== END 2022-10-02 19:18 | disposition home or self-care (01) ==
PROVIDERS: Physician Assistant Medical; Emergency Provider Emergency Medicine; PCP Physician Assistant
DX: R03.0 Elevated blood-pressure reading, without diagnosis of hypertension (principal); R51.9 Headache, unspecified; R79.89 Other specified abnormal findings of blood chemistry; Z79.899 Other long term (current) drug therapy
CPT/HCPCS: 36415; 70450; 80053; 83735; 85025; 93005; 99284

== ENCOUNTER 2022-11-05 16:12 | Outpatient (REF) | payer OTHER, SELFPAY ==
[2022-11-05 17:53] LABS: Hematocrit 45.7 % (42.0-52.0); Hemoglobin 15.6 g/dl (14.0-18.0); Mean Corpuscular HGB Conc 34.1 g/dl (31.0-36.0); Mean Corpuscular Hemoglobin 28.6 pg (27.0-33.0); Mean Corpuscular Volume 83.7 fL (80.0-98.0); Mean Platelet Volume 10.7 fL (9.4-12.4); Platelet Count 291 X10*3/uL (160-400); Red Blood Count 5.46 X10*6/uL (4.60-5.80); Red Cell Distribution Width 13.2 % (11.0-16.0); White Blood Count 9.2 X10*3/uL (4.8-10.8)
[2022-11-05 18:02] LABS: Creatinine Urine 196.63 mg/dL; Microalbum/Creatinine Ratio Ur 5.5 ug/mg cr
[2022-11-05 18:13] LABS: Alanine Aminotransferase 44 U/L (0-40); Albumin Level 4.6 g/dL (3.5-5.0); Alkaline Phosphatase 86 U/L (39-117); Anion Gap 15 (12-20); Aspartate Amino Transferase 34 U/L (5-37); Bilirubin Total 0.5 mg/dL (0.0-1.0); Blood Urea Nitrogen 17 mg/dL (9-16); Calcium 9.3 mg/dL (8.4-10.2); Carbon Dioxide 26 mmol/L (22-29); Chloride 104 mmol/L (96-108); Cholesterol 217 mg/dL; Estimated Glomerular Filt Rate > 60; Glucose Fasting 88 mg/dL (60-99); HDL Cholesterol 79 mg/dL; LDL Cholesterol Calculated 125 mg/dl; Potassium 4.3 mmol/L (3.3-5.1); Sodium 141 mmol/L (135-145); Total Protein 7.4 g/dL (6.5-8.0); Triglycerides 69 mg/dL
[2022-11-05 18:25] LABS: Vitamin D 25-OH Total 20.2 ng/mL (>30)
[2022-11-05 18:43] LABS: TSH reflex Free T4 1.33 uIU/mL (0.32-4.0); Vitamin B12 385 pg/mL (200-900)
== END 2022-11-05 16:13 | disposition home or self-care (01) ==
LOC: HO.LAB 16:12
PROVIDERS: Nurse Practitioner Family; PCP Physician Assistant; Visit Provider Physician Assistant
DX: I10 Essential (primary) hypertension (principal)
CPT/HCPCS: 36415; 80053; 80061; 82043; 82306; 82607; 82746; 84443; 85027

== ENCOUNTER 2023-09-20 21:36 | Emergency (ER) | payer OTHER, SELFPAY ==
[2023-09-20 21:38] VITALS: BP 151/91; PULSE 86; RESP 18; TEMP 36.4; O2SAT 96; BMI 26.5
[2023-09-20 23:56] VITALS: BP 137/76; PULSE 75; RESP 18; TEMP 37; O2SAT 97
--- NOTE | 2023-09-21 00:32 | ED_ITS ---
HPI - Wound/Laceration General Chief Complaint: Wound/Laceration Stated Complaint: LT thumb lac Time Seen by Provider: 09/20/23 23:42 Source: patient Mode of arrival: ambulatory Limitations: no limitations History of Present Illness HPI narrative: She is a 33-year-old male who presents emergency department for evaluation of a laceration to the left thumb. He is left-hand dominant. Reports that he was pushing down the trash in the garbage can when he sustained an accidental laceration to the distal tip of the thumb from a can. He reports his last tetanus vaccination was in 2020. Had difficulty getting the bleeding control at home which prompted his visit to the ED. He denies any numbness tingling sensation. Reports able to flex and extend the finger. Denies any use of anticoagulants or known coagulation disorders. Related Data Previous Rx's Medication Instructions Recorded blood pressure test kit-large #1 ea 10/07/22 albuterol sulfate 90 mcg/actuation 1 inh inhalation QID PRN shortness 01/04/23 aerosol inhaler of breath or wheezing 30 days #8.5 grams cholecalciferol (vitamin D3) 25 25 mcg PO DAILY #90 tabs 02/20/23 mcg (1,000 unit) tablet lisinopril 10 mg tablet 10 mg PO DAILY 90 days #90 tabs 08/04/23 Allergies Allergy/AdvReac Type Severity Reaction Status Date / Time Penicillins Allergy Swelling Verified 09/20/23 21:38 amlodipine AdvReac Intermediate Pedal edema Verified 09/20/23 21:38 Review of Systems Review of Systems: Yes all other systems are reviewed and are negative PMFSH Past Medical History Attestation statement: The following information was validated with the patient. Source: old records reviewed Medical History Hypertension Asthma Surgical History History of elbow surgery History of knee surgery Family History Family History Mother Anxiety Depressed Other Mental health disorder Social History Social History Household Members: Family Housing: House Do you presently have visiting nurse or other home services: No Alcohol intake: current Alcohol intake frequency: holidays/special occasions only Alcohol type: beer Patient Tobacco Use Status: Never used Tobacco e-Cigarette/Vaping Use: Never Used Second Hand Smoke Exposure: No Advance Directives: No Advance Directives Information Provided: Yes service: No Current occupational status: employed Current occupation: [employer] Cognitive needs: No Hearing needs: No Vision needs: Yes (Glasses) Physical Exam Vital Signs: Vital Signs: Last Vital Signs Temp 98.6 F 09/20/23 23:56 Pulse 75 09/20/23 23:56 Resp 18 09/20/23 23:56 BP 137/76 09/20/23 23:56 Pulse Ox 97 09/20/23 23:56 O2 Del Method Room Air 09/20/23 23:56 BMI result Body Mass Index 26.5 Appearance: Alert.?Oriented to person, place and time. No acute distress.?Normal affect. Neck: Normal inspection.? Neck supple.?? CVS: Heart sounds normal. Normal heart rate and rhythm.? Pulses normal.?? Respiratory: No respiratory distress.? Lung sounds clear to auscultation bilaterally?? Skin: Skin warm and dry.? Normal skin color.? Left thumb, palmar aspect, linear vertical laceration 3 cm involving the subcutaneous tissue. Extremities: No l extremity edema.? Neuro: Moves all extremities spontaneously. Sensation intact bilaterally. Ambulates with normal steady gait. Medical Decision Making Medical Decision Making MDM Narrative: Patient is a 33-year-old male who presents emergency department for evaluation of an accidental laceration to the left thumb as per HPI. Bleeding is currently controlled, laceration will require suture repair. Low suspicion for any osseous abnormality, or retained foreign body, would defer XR imaging at this time. Bleeding is controlled. There is no neurovascular compromise. Laceration repair as per procedural section of this note. Tetanus is up-to-date. Stable for discharge. Differential Diagnosis Differential Diagnoses: The differential diagnosis associated with the presentation includes (As noted above) Independent Historian Clinical information obtained from an independent historian. History obtained from or confirmed by: Spouse (Present who confirms history) Tests considered The following testing was considered but not selected: See narrative above Prescription Management I considered prescription management with: Pain Medication (Acetaminophen/ibuprofen) Procedures Laceration Laceration 1: Site: hand Side (If applicable): left Size (cm): 3 Description: linear Depth: simple, single layer Local Anesthetic: lidocaine 1% Amount of anesthesia used (mL): 2 Pre-repair: wound explored Skin layer closed with: nylon Size (cm): 5-0 Number of sutures: 3 Technique: simple, interrupted Discharge Plan Discharge Clinical Impression: Laceration of finger of left hand Patient Disposition: Home, Self-Care Instructions: Finger Laceration (ED) Additional Instructions: Stitches will need to be removed in 10-14 days. You can return back to [facility] department or follow-up with your primary care provider to have stitches removed. Have it re-evaluated if you develop any increased pain, redness, swelling, pus- like discharge, fevers, chills, inability to move the finger. Prescriptions: No Action albuterol sulfate 90 mcg/actuation HFA aerosol inhaler 1 inh inhalation QID PRN (Reason: shortness of breath or wheezing) 30 Days Qty: 8.5 5RF cholecalciferol (vitamin D3) 25 mcg (1,000 unit) tablet 25 mcg PO DAILY Qty: 90 0RF lisinopril 10 mg tablet 10 mg PO DAILY 90 Days Qty: 90 0RF (DME) blood pressure test kit-large Kit See Rx Instructions .Route Qty: 1 0RF Rx Instructions: As directed
[2023-09-21] MEDS: Lidocaine HCl 1 % MPF 5 ML VIAL SUBCUT (01:34)
== END 2023-09-21 01:37 | disposition home or self-care (01) ==
PROVIDERS: Emergency Provider Emergency Medicine Emergency Medical Services
DX: S61.012A Laceration without foreign body of left thumb without damage to nail, initial encounter (principal); I10 Essential (primary) hypertension; W26.8XXA Contact with other sharp object(s), not elsewhere classified, initial encounter; Y93.9 Activity, unspecified; Y92.9 Unspecified place or not applicable; Y99.9 Unspecified external cause status
CPT/HCPCS: 12002; 99283; 99284

== ENCOUNTER 2023-09-22 15:45 | Outpatient (AMB) | payer OTHER, SELFPAY ==
[2023-09-22 15:49] VITALS: BP 128/82; PULSE 70; O2SAT 98; BMI 27.5
--- NOTE | 2023-09-22 15:49 | MHC.PC.OV ---
Vital Signs 09/22/23 15:49 Height 5 ft 11 in Weight 197 lb BMI 27.5 BP 128/82 Blood Pressure Location Lt brachial Position Sitting Pulse 70 Pulse Source Pulse Oximeter Pulse Oximetry (%) 98 Oxygen Delivery Method Room Air Intake Visit Reasons: HTF Creative Services Manager Required: No Yarn Wrapper: Not Required per policy Accompanied by: Self / Same As Patient Allergies Penicillins Allergy (Verified 09/22/23 15:59) Swelling amlodipine Adverse Reaction (Intermediate, Verified 09/22/23 15:59) Pedal edema Medication List - Last Reconciled 09/22/23 by Adriano Graf PA-C albuterol sulfate 90 mcg/actuation 1 inh inhalation QID PRN 30 days blood pressure test kit-large As directed cholecalciferol (vitamin D3) 25 mcg PO DAILY lisinopril 10 mg PO DAILY 90 days Tobacco use date assessed: 09/22/23 Dental Screening Dental Screen Date: 09/22/23 Did you have a dental visit in the last 12 months?: No Did you have a dental problem in the last 6 months where you did not have access to dental care?: No Was dental information given to patient?: Patient has dentist HPI HTF HPI Details Patient is a 33-year-old male here today for follow-up on his hypertension. Patient continues on lisinopril with good effect on his blood pressure. Blood pressure readings today in office are acceptable. Blood pressure much improved, reports his headaches and minor chest pains have resolved. Continues to try to work on low-sodium diet. Borderline high cholesterol: Most recent labs showing a borderline high cholesterol will continue working on lifestyle modifications on reducing high cholesterol foods. [facility] Medical History Hypertension Asthma Surgical History History of elbow surgery History of knee surgery Family History Mother Anxiety Depressed Other Mental health disorder Social History Household Members: Family Housing: House Do you presently have visiting nurse or other home services: No Alcohol intake: current Alcohol intake frequency: holidays/special occasions only Alcohol type: beer Patient Tobacco Use Status: Never used Tobacco e-Cigarette/Vaping Use: Never Used Second Hand Smoke Exposure: No service: No Current occupational status: employed Current occupation: [employer] Cognitive needs: No Hearing needs: No Vision needs: Yes (Glasses) Questionnaire PHQ-9 Over the last 2 weeks, how often have you been bothered by any of the following problems? 1. Little interest or pleasure in doing things: not at all 2. Feeling down, depressed, or hopeless: not at all 3. Trouble falling or staying asleep, or sleeping too much: not at all 4. Feeling tired or having little energy: not at all 5. Poor appetite or overeating: not at all 6. Feeling bad about yourself - or that you are a failure or have let yourself or your family down: not at all 7. Trouble concentrating on things, such as reading the newspaper or watching television: not at all 8. Moving or speaking so slowly that other people could have noticed. Or the opposite - being so fidgety or restless that you have been moving around a lot more than usual: not at all 9. Thoughts that you would be better off or of hurting yourself in some way: not at all Total score: 0 Depression Screening Interpretation: Negative Depression Screening Done: Yes 41510 - PHQ-9 Billing: Yes Source: Developed by Drs. Hemal Hooper, Nalini Brito, Eloy Ortega and colleagues, with an educational yamilet from [employer]. Thrive Questionnaire Date Thrive assessed: 09/22/23 I am a: Patient What is your living situation today?: I have a steady place to live Within the past 12 months, did the food you bought not last and you didn't have the money to get more?: Never true Within the past 12 months, did you worry whether your food would run out before you got money to buy more?: Never true Do you have trouble paying for medicines?: No Do you have trouble getting transportation to medical appointments?: No Do you have trouble paying your heating and electricity bill?: No Do you have trouble taking care of your child, family member or friend?: No Do you have trouble with day-to-day activities such as bathing, preparing meals, shopping, managing finances, etc.?: No Are you currently unemployed and looking for a job?: No Are you interested in more education?: No Please select the resources that you would like help with: None THRIVE Score: 0 AUDIT C Alcohol Use Questionnaire (AUDIT-C) 1. How often do you have a drink containing alcohol?: Never 3. How often do you have six or more drinks on one occasion?: Never Total Score: 0 GARY-7 AMB Questionnaire GARY-7 Date GARY - 7 assessed: 09/22/23 Feeling nervous, anxious, or on edge: 0 = Not at all Not being able to stop or control worryin = Not at all Worrying too much about different things: 0 = Not at all Trouble relaxin = Not at all Being so restless that it is hard to sit still: 0 = Not at all Becoming easily annoyed or irritable: 0 = Not at all Feeling afraid as if something awful might happen: 0 = Not at all Total GARY-7 score (0-4 normal; 5-9 mild; 10-14 moderate; 15-21 severe): 0 Source: Developed by Drs. Hemal Hooper, Nalini Brito, Eloy Ortega and colleagues, with an educational yamilet from [employer]. GARY-7 Assessment Billing GARY-7 Assessment Tool: GARY-7 Assessment 79797 Review of Systems Const Denies headache(s) Eyes Denies loss of vision ENT Denies vertigo, Denies dizziness, Denies headache(s) and Denies sore throat Card Denies chest pain, Denies leg edema and Denies lightheadedness Resp Denies cough, Denies hemoptysis and Denies wheezing GI Denies abdominal pain, Denies melena, Denies constipation, Denies diarrhea and Denies vomiting Denies dysuria, Denies urinary frequency and Denies urinary urgency Musc Denies arthralgias, Denies joint swelling, Denies numbness and Denies tingling Neuro Denies Abnormal speech present, Denies behavioral changes, Denies vertigo, Denies dizziness, Denies headache(s), Denies loss of vision, Denies memory loss, Denies numbness and Denies tingling Psych Denies anxiety, Denies behavioral changes, Denies depression, Denies memory loss and Denies panic attacks Sergio/Lymph Denies easy bleeding and Denies easy bruising Aller/Immun Denies wheezing Physical exam (Primary Care) Vital Signs: Last Vital Signs Pulse 70 09/22/23 15:49 BP 128/82 09/22/23 15:49 Pulse Ox 98 09/22/23 15:49 Oxygen Delivery Method Room Air 09/22/23 15:49 BMI result Body Mass Index 27.5 Tobacco/Smoking Status: Tobacco use Status Tobacco use date assessed 09/22/23 09/22/23 15:50 Patient Tobacco Use Status Never used Tobacco 09/22/23 15:50 e-Cigarette/Vaping Use Never Used 09/22/23 15:50 PHQ-9: PHQ-9 Score PHQ-9: Total score 0 09/22/23 16:00 Depression Screening Interpretation: Negative Thrive Assessment: Date of Thrive Assessment Date Thrive assessed 09/22/23 09/22/23 15:50 Const General: healthy appearing, no acute distress, alert and awake Nutritional Appearance: well nourished Orientation/consciousness: oriented to person, oriented to place and oriented to time HENMT Ears: TM's normal bilaterally General nose exam: Normal nasal mucous membranes and turbinates present Eyes Conjunctivae: conjunctivae normal Sclerae: sclerae normal Pupils: Equal, round and reactive pupils present Neck Neck: Yes no lymphadenopathy and Yes no JVD Thyroid: Thyroid normal Carotids: no bruits Resp Effort & Inspection: normal respiratory effort and not tachypneic Auscultation: no crackles, no rales, no rhonchi and no wheezes Cardio Rate: regular rate Rhythm: regular rhythm Heart sounds: no murmurs and normal S1 and S2 GI Palpation (GI): Soft to palpation, nontender, no hepatomegaly and no splenomegaly Auscultation: normal bowel sounds Skin General skin exam: no rashes or lesions noted and dry skin Neuro General: oriented to person, oriented to place and oriented to time Cranial nerves: Yes Equal, round and reactive pupils present Speech: No Abnormal speech present Gait exam (Neuro): Normal gait present Motor exam (neuro): no tremor noted Extrem Right upper extremity: full ROM Left upper extremity: full ROM Right lower extremity: full ROM; no edema Left lower extremity: full ROM; no edema Psych Mental Status: mental status grossly normal Speech and movement: Normal speech and movement present Affect: normal affect Attitude: cooperative Thought process: Normal thought process present Assessment and Plan Assessment & Plan (1) Hypertension: Code(s): I10 - Essential (primary) hypertension Qualifiers: Hypertension type: primary hypertension Qualified Code(s): I10 - Essential (primary) hypertension Plan: Patient's blood pressure acceptable today in office. Will continue him on his current dose of lisinopril. Advised to continue monitoring blood pressure at home with goal blood pressure to be below 140/90 (2) Borderline high cholesterol: Code(s): E78.9 - Disorder of lipoprotein metabolism, unspecified Plan: Will continue to work on low cholesterol diet. Will recheck lipid panel to ensure appropriate total cholesterol and LDL. Goal total cholesterol to be below 230. Orders: Orders Vitamin D 25-OH Total 09/22/23 R79.89 - Other specified abnormal findings of blood chemistry Microalbumin, Random (w Creat) 09/22/23 I10 - Essential (primary) hypertension Comprehensive [place]. Panel Fast 09/22/23 I10 - Essential (primary) hypertension Complete Blood Count no Diff 09/22/23 I10 - Essential (primary) hypertension Lipid Panel 09/22/23 E78.9 - Disorder of lipoprotein metabolism, unspecified Coding Level of Care Code Est Pt Level 4 (30157) Diagnoses Primary hypertension I10 Hypertension type: primary hypertension Borderline high cholesterol E78.9 Additional Codes GARY-7 Assessment Billing - GARY-7 Assessment Tool: GARY-7 Assessment [id number] ([id number])
== END 2023-09-22 16:21 | disposition home or self-care (01) ==
PROVIDERS: PCP Physician Assistant; Visit Provider Physician Assistant
DX: I10 Essential (primary) hypertension (principal); E78.9 Disorder of lipoprotein metabolism, unspecified
CPT/HCPCS: 99214

== ENCOUNTER 2023-09-28 13:15 | Outpatient (AMB) | payer OTHER, SELFPAY ==
--- NOTE | 2023-09-28 13:17 | MHC.PC.OV ---
Vital Signs 09/28/23 13:21 Height 5 ft 11 in Weight 199 lb 8 oz BMI 27.8 BP 130/96 H Blood Pressure Location Lt brachial Position Sitting Pulse 97 Pulse Source Pulse Oximeter Pulse Oximetry (%) 97 Oxygen Delivery Method Room Air Intake Visit Reasons: suture removal ( ok to scedule in Admin time) Intake Note: Pt is here for suture removal of the left hand thumb. Customer Insight Analyst Required: No Accompanied by: Self / Same As Patient Allergies Penicillins Allergy (Verified 09/28/23 13:21) Swelling amlodipine Adverse Reaction (Intermediate, Verified 09/28/23 13:21) Pedal edema Tobacco use date assessed: 09/22/23 Dental Screening Dental Screen Date: 09/28/23 Did you have a dental visit in the last 12 months?: Yes Did you have a dental problem in the last 6 months where you did not have access to dental care?: No Was dental information given to patient?: Patient has dentist HPI suture removal ( ok to scedule in Admin time) HPI Details Patient is a 33-year-old male here today for suture removal out of his left thumb. He unfortunately suffered a laceration while taking out the trash due to a metal object. He is up-to-date with tetanus vaccine [facility] Medical History Hypertension Asthma Surgical History History of elbow surgery History of knee surgery Family History Mother Anxiety Depressed Other Mental health disorder Social History Household Members: Family Housing: House Do you presently have visiting nurse or other home services: No Alcohol intake: current Alcohol intake frequency: holidays/special occasions only Alcohol type: beer Patient Tobacco Use Status: Never used Tobacco e-Cigarette/Vaping Use: Never Used Second Hand Smoke Exposure: No service: No Current occupational status: employed Current occupation: [employer] Cognitive needs: No Hearing needs: No Vision needs: Yes (Glasses) Questionnaire Thrive Questionnaire Date Thrive assessed: 09/22/23 GARY-7 AMB Questionnaire GARY-7 Date GARY - 7 assessed: 09/22/23 Source: Developed by Drs. Hemal Hooper, Nalini Brito, Eloy Ortega and colleagues, with an educational yamilet from [employer]. Review of Systems Const Denies headache(s) Eyes Denies loss of vision ENT Denies vertigo, Denies dizziness, Denies headache(s) and Denies sore throat Card Denies chest pain, Denies leg edema and Denies lightheadedness Resp Denies cough, Denies hemoptysis and Denies wheezing GI Denies abdominal pain, Denies melena, Denies constipation, Denies diarrhea and Denies vomiting Denies dysuria, Denies urinary frequency and Denies urinary urgency Musc Denies arthralgias, Denies joint swelling, Denies numbness and Denies tingling Neuro Denies Abnormal speech present, Denies behavioral changes, Denies vertigo, Denies dizziness, Denies headache(s), Denies loss of vision, Denies memory loss, Denies numbness and Denies tingling Psych Denies anxiety, Denies behavioral changes, Denies depression, Denies memory loss and Denies panic attacks Sergio/Lymph Denies easy bleeding and Denies easy bruising Aller/Immun Denies wheezing Physical exam (Primary Care) Vital Signs: Last Vital Signs Pulse 97 09/28/23 13:21 BP 130/96 H 09/28/23 13:21 Pulse Ox 97 09/28/23 13:21 Oxygen Delivery Method Room Air 09/28/23 13:21 BMI result Body Mass Index 27.8 Tobacco/Smoking Status: Tobacco use Status Tobacco use date assessed 09/22/23 09/28/23 13:17 Patient Tobacco Use Status Never used Tobacco 09/28/23 13:17 e-Cigarette/Vaping Use Never Used 09/28/23 13:17 Thrive Assessment: Date of Thrive Assessment Date Thrive assessed 09/22/23 09/28/23 13:17 Const General: healthy appearing, no acute distress, alert and awake Nutritional Appearance: well nourished Orientation/consciousness: oriented to person, oriented to place and oriented to time HENMT Ears: TM's normal bilaterally General nose exam: Normal nasal mucous membranes and turbinates present Eyes Conjunctivae: conjunctivae normal Sclerae: sclerae normal Pupils: Equal, round and reactive pupils present Neck Neck: Yes no lymphadenopathy and Yes no JVD Thyroid: Thyroid normal Carotids: no bruits Resp Effort & Inspection: normal respiratory effort and not tachypneic Auscultation: no crackles, no rales, no rhonchi and no wheezes Cardio Rate: regular rate Rhythm: regular rhythm Heart sounds: no murmurs and normal S1 and S2 GI Palpation (GI): Soft to palpation, nontender, no hepatomegaly and no splenomegaly Auscultation: normal bowel sounds Skin General skin exam: no rashes or lesions noted and dry skin Neuro General: oriented to person, oriented to place and oriented to time Cranial nerves: Yes Equal, round and reactive pupils present Speech: No Abnormal speech present Gait exam (Neuro): Normal gait present Motor exam (neuro): no tremor noted Extrem Right upper extremity: full ROM Left upper extremity: full ROM Hand/finger images: 1. SMALL WELL-HEALED LACERATION Right lower extremity: full ROM; no edema Left lower extremity: full ROM; no edema Psych Mental Status: mental status grossly normal Speech and movement: Normal speech and movement present Affect: normal affect Attitude: cooperative Thought process: Normal thought process present Assessment and Plan Assessment & Plan (1) Visit for suture removal: Code(s): Z48.02 - Encounter for removal of sutures Plan: Removed 3 sutures today in office. Patient tolerated procedure well (2) Laceration of left thumb: Code(s): S61.012A - Laceration without foreign body of left thumb without damage to nail, initial encounter Qualifiers: Encounter type: subsequent encounter Damage to nail status: without damage Foreign body presence: without foreign body Qualified Code(s): S61.012D - Laceration without foreign body of left thumb without damage to nail, subsequent encounter Coding Level of Care Code Est Pt Level 3 (22927) Diagnoses Visit for suture removal Z48.02 Laceration of left thumb without foreign body without damage to nail, subsequent encounter S61.012D Encounter type: subsequent encounter Damage to nail status: without damage Foreign body presence: without foreign body
[2023-09-28 13:21] VITALS: BP 130/96; PULSE 97; O2SAT 97; BMI 27.8
== END 2023-09-28 13:54 | disposition home or self-care (01) ==
PROVIDERS: Visit Provider Physician Assistant
DX: S61.012A Laceration without foreign body of left thumb without damage to nail, initial encounter (principal); Z48.02 Encounter for removal of sutures
CPT/HCPCS: 15853; 99213

== ENCOUNTER 2024-03-29 14:19 | Outpatient (AMB) | payer OTHER, SELFPAY ==
[2024-03-29 14:29] VITALS: BP 126/86; PULSE 90; O2SAT 98; BMI 27.8
--- NOTE | 2024-03-29 14:29 | A.OFFPC_ITS ---
Vital Signs 03/29/24 14:29 Height 5 ft 11 in Weight 199 lb 2 oz BMI 27.8 BP 126/86 Blood Pressure Location Lt brachial Position Sitting Pulse 90 Pulse Source Pulse Oximeter Pulse Oximetry (%) 98 Oxygen Delivery Method Room Air Intake Visit Reasons: Annual exam Intake Note: Patient is here today for a physical. 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 Accompanied by: Self / Same As Patient Allergies Penicillins Allergy (Verified 03/29/24 14:31) Swelling amlodipine Adverse Reaction (Intermediate, Verified 03/29/24 14:31) Pedal edema Medication List - Last Reconciled 03/29/24 by Adriano Graf PA-C albuterol sulfate 90 mcg/actuation 1 inh inhalation QID PRN 30 days blood pressure test kit-large As directed cholecalciferol (vitamin D3) 25 mcg PO DAILY lisinopril 10 mg PO DAILY 90 days Tobacco use date assessed: 09/22/23 Dental Screening Dental Screen Date: 09/28/23 HPI Annual exam HPI Details Patient is a 34-year-old male here today for routine annual physical. concerns--> Having left knee pain over the last 2 months , reports having a ACL repair years ago. He reports his pain gets worse over the anterior and lateral side when he stands or walks for long period of time. He is interested in seeing orthopedics again for evaluation. Hypertension: Has been consistent with the use of lisinopril 5 mg, today's blood pressure acceptable today in office. Patient continues on lisinopril with good effect on his blood pressure. Blood pressure readings today in office are acceptable. Blood pressure much improved, reports his headaches and minor chest pains have resolved. Borderline high cholesterol: Most recent labs showing a borderline high cholesterol will continue working on lifestyle modifications on reducing high cholesterol foods. Vaccines: Up-to-date with COVID and tetanus vaccine. Considering flu vaccine this fall [facility] Medical History Hypertension Asthma Surgical History History of elbow surgery History of knee surgery Family History Mother Anxiety Depressed Father Prostate cancer Other Mental health disorder Social History Household Members: Family Housing: House Do you presently have visiting nurse or other home services: No Alcohol intake: current Alcohol intake frequency: holidays/special occasions only Alcohol type: beer Patient Tobacco Use Status: Never used Tobacco e-Cigarette/Vaping Use: Never Used Second Hand Smoke Exposure: No service: No Current occupational status: employed Current occupation: [employer] Cognitive needs: No Hearing needs: No Vision needs: Yes (Glasses) Questionnaire PHQ-9 Over the last 2 weeks, how often have you been bothered by any of the following problems? 1. Little interest or pleasure in doing things: not at all 2. Feeling down, depressed, or hopeless: not at all 3. Trouble falling or staying asleep, or sleeping too much: not at all 4. Feeling tired or having little energy: not at all 5. Poor appetite or overeating: not at all 6. Feeling bad about yourself - or that you are a failure or have let yourself or your family down: not at all 7. Trouble concentrating on things, such as reading the newspaper or watching television: not at all 8. Moving or speaking so slowly that other people could have noticed. Or the opposite - being so fidgety or restless that you have been moving around a lot more than usual: not at all 9. Thoughts that you would be better off or of hurting yourself in some way: not at all Total score: 0 Depression Screening Interpretation: Negative Depression Screening Done: Yes 31167 - PHQ-9 Billing: Yes Source: Developed by Drs. Hemal Hooper, Nalini Brito, Eloy Ortega and colleagues, with an educational yamilet from [employer]. Thrive Questionnaire Date Thrive assessed: 09/22/23 I am a: Patient What is your living situation today?: I have a steady place to live Within the past 12 months, did the food you bought not last and you didn't have the money to get more?: I choose not to answer this question Within the past 12 months, did you worry whether your food would run out before you got money to buy more?: I choose not to answer this question Do you have trouble paying for medicines?: No Do you have trouble getting transportation to medical appointments?: No Do you have trouble paying your heating and electricity bill?: No Do you have trouble taking care of your child, family member or friend?: No Do you have trouble with day-to-day activities such as bathing, preparing meals, shopping, managing finances, etc.?: No Are you currently unemployed and looking for a job?: No Are you interested in more education?: No Please select the resources that you would like help with: None Currently or been in a relationship where the following occur: No concerns reported and I choose not to answer THRIVE Score: 0 AUDIT C Alcohol Use Questionnaire (AUDIT-C) 1. How often do you have a drink containing alcohol?: Monthly or less 2. How many drinks containing alcohol do you have on a typical day when you are drinking?: 3 or 4 3. How often do you have six or more drinks on one occasion?: Weekly Total Score: 5 GARY-7 AMB Questionnaire GARY-7 Date GARY - 7 assessed: 09/22/23 Feeling nervous, anxious, or on edge: 0 = Not at all Not being able to stop or control worryin = Not at all Worrying too much about different things: 0 = Not at all Trouble relaxin = Not at all Being so restless that it is hard to sit still: 0 = Not at all Becoming easily annoyed or irritable: 0 = Not at all Feeling afraid as if something awful might happen: 0 = Not at all Total GARY-7 score (0-4 normal; 5-9 mild; 10-14 moderate; 15-21 severe): 0 Source: Developed by Drs. Hemal Hooper, Nalini Brito, Eloy Ortega and colleagues, with an educational yamilet from [employer]. GARY-7 Assessment Billing GAYR-7 Assessment Tool: GARY-7 Assessment 38573 Review of Systems Const Denies body aches, Denies chills, Denies excessive sweating, Denies fatigue, Denies fever(s) and Denies headache(s) Eyes Denies blurry vision ENT Denies dysphagia, Denies vertigo, Denies dizziness, Denies headache(s), Denies hearing loss and Denies tinnitus Card Denies chest pain, Denies chest pain with activity, Denies syncope, Denies irregular heart rhythm and Denies dyspnea Resp Denies chest congestion, Denies cough, Denies hemoptysis, Denies dyspnea and Denies wheezing GI Denies abdominal pain, Denies melena, Denies hematochezia, Denies coffee ground emesis, Denies dysphagia, Denies diarrhea, Denies nausea and Denies vomiting Denies difficulty urinating, Denies dysuria, Denies urinary frequency, Denies urinary hesitancy and Denies urinary urgency Musc Denies arthralgias, Denies limited range of motion, Denies muscle cramps and Denies muscle weakness Skin/Breast Denies rash and Denies skin ulcer Neuro Denies Abnormal speech present, Denies confusion, Denies vertigo, Denies dizziness, Denies syncope, Denies headache(s), Denies memory loss and Denies seizure-like activity Psych Denies anxiety, Denies confusion, Denies depression, Denies memory loss, Denies panic attacks and Denies paranoia Endo Denies excessive sweating, Denies fatigue, Denies flushing, Denies polydipsia and Denies polyuria Aller/Immun Denies wheezing Physical exam (Primary Care) Vital Signs: Last Vital Signs Pulse 90 03/29/24 14:29 BP 126/86 03/29/24 14:29 Pulse Ox 98 03/29/24 14:29 Oxygen Delivery Method Room Air 03/29/24 14:29 BMI result Body Mass Index 27.8 Tobacco/Smoking Status: Tobacco use Status Tobacco use date assessed 09/22/23 03/29/24 14:30 Patient Tobacco Use Status Never used Tobacco 03/29/24 14:35 e-Cigarette/Vaping Use Never Used 03/29/24 14:35 Depression Screening Interpretation: Negative Thrive Assessment: Date of Thrive Assessment Date Thrive assessed 09/22/23 03/29/24 14:30 Currently or been in a relationship where the following occur: No concerns reported and I choose not to answer Const General: cooperative, comfortable, no acute distress, alert and awake; No confusion Orientation/consciousness: oriented to person, oriented to place, patient oriented x3 and No confusion HENMT Head: Yes normocephalic Ears: external ears normal and TM's normal bilaterally Face and sinus: No sinus tenderness Mouth: Normal oral and palatal mucosa present and tongue normal Teeth and gingiva: dentition normal and gingiva normal Throat: Yes posterior oropharynx normal, Yes tonsils normal and Yes uvula midline Eyes Conjunctivae: conjunctivae normal Sclerae: sclerae normal Pupils: Equal, round and reactive pupils present EOM: EOMs intact bilaterally Direct Ophthalmoscopy: No no photophobia Neck Neck: Yes no lymphadenopathy, No tender and Yes no JVD Thyroid: Thyroid normal Carotids: no bruits Chest Chest palpation & inspection: no tenderness Resp Effort & Inspection: normal respiratory effort, no audible wheezes, not labored and no stridor Auscultation: no crackles, no rales, no rhonchi and no wheezes Cardio Jugular venous distension: no JVD Rate: regular rate, not bradycardic and not tachycardic Rhythm: regular rhythm Bruits: no carotid bruits Peripheral pulses: Peripheral pulses 2+ throughout GI Inspection: Yes normal to inspection, No abdominal wall ecchymosis and No visible herniation Palpation (GI): Soft to palpation, nontender, no guarding, not rigid and No hepatosplenomegaly present Auscultation: normoactive bowel sounds General: Yes no CVA tenderness Back/Spine/Pelvis Back: no CVA tenderness and No back tenderness Cervical Spine: cervical ROM normal Thoracic/Lumbar Spine: thoracic and lumbar spine normal to inspection, straight leg raise negative bilaterally, No thoraco-lumbar ROM limited and No lumbar spinal tenderness Skin Lesions: no lesions Rashes: no rashes Wounds: no wounds Neuro General: oriented to person, oriented to place, patient oriented x3, CN's II-XI intact bilaterally and No confusion Cranial nerves: Yes Equal, round and reactive pupils present and Yes Normal accommodation reflex present Cognition (Neuro): normal cognition Speech: No Abnormal speech present Gait exam (Neuro): Normal gait present Motor exam (neuro): 5/5 motor strength present throughout Extrem Right upper extremity: full ROM; no cyanosis Left upper extremity: full ROM; no cyanosis Right lower extremity: no edema Left lower extremity: no edema Psych Appearance: grossly normal Mental Status: mental status grossly normal Affect: normal affect Attitude: cooperative Thought process: Normal thought process present Assessment and Plan Assessment & Plan (1) Annual physical exam: Code(s): Z00.00 - Encounter for general adult medical examination without abnormal findings (2) Hypertension: Code(s): I10 - Essential (primary) hypertension Qualifiers: Hypertension type: primary hypertension Qualified Code(s): I10 - Essential (primary) hypertension Plan: Patient's blood pressure acceptable today in office. Will continue him on his current dose of lisinopril. Advised to continue monitoring blood pressure at home with goal blood pressure to be below 140/90 (3) Borderline high cholesterol: Code(s): E78.9 - Disorder of lipoprotein metabolism, unspecified Plan: Will continue to work on low cholesterol diet. Will recheck lipid panel to ensure appropriate total cholesterol and LDL. Goal total cholesterol to be below 230. (4) Left anterior knee pain: Code(s): M25.562 - Pain in left knee Plan: Has been having some anterior and lateral left knee pain over the last few months. He does report having a traumatic injury to his left knee in 2016 and had an ACL repair. He is interested in seeing orthopedics for further evaluation. Orders: Referrals Orthopedics Referral M25.562 - Pain in left knee Patient Instructions: Goal: Blood pressure to remain below 140/90 Barriers: Adherence to physical activity, low-sodium diet and healthy eating habits. Coding Level of Care Code Est Pt Prev Care [id number]) Diagnoses Annual physical exam Z00.00 Primary hypertension I10 Hypertension type: primary hypertension Borderline high cholesterol E78.9 Left anterior knee pain M25.562 Additional Codes GARY-7 Assessment Billing - GARY-7 Assessment Tool: GARY-7 Assessment 13839 ([id number])
== END 2024-03-29 14:54 | disposition home or self-care (01) ==
PROVIDERS: Visit Provider Physician Assistant
DX: Z00.00 Encounter for general adult medical examination without abnormal findings (principal); I10 Essential (primary) hypertension; E78.9 Disorder of lipoprotein metabolism, unspecified; M25.562 Pain in left knee
CPT/HCPCS: 99395

== ENCOUNTER 2024-04-25 12:54 | Outpatient (REF) | payer OTHER, SELFPAY | END 2024-04-25 12:55 | disposition home or self-care (01) | LOC: HO.HOSX 12:54 | PROVIDERS: Visit Provider Physician Assistant | DX: Z13.89 Encounter for screening for other disorder (principal) ==

== ENCOUNTER 2024-05-19 10:20 | Outpatient (REF) | payer SELFPAY | END 2024-05-19 10:21 | disposition home or self-care (01) | LOC: HO.HOSX 10:20 | PROVIDERS: Visit Provider Physician Assistant | DX: Z13.89 Encounter for screening for other disorder (principal) ==